=== PATIENT | female | born 1955 | race Caucasian/White ===

== ENCOUNTER 2025-05-05 09:25 | Inpatient (IN) | payer MEDICARE, OTHER ==
[~2025-05-05] VITALS: Ht 177.8 cm; Wt 104.8 kg
--- NOTE | 2025-05-05 09:32 | ED.PDOC ---
HPI Comments This is a 69 year old female BIBA presenting to the ED with chief complaint of generalized weakness. EMS reports that the patient had been noted at home to be hypotensive in the 60s systolically along with experiencing associated generalized weakness and dizziness. EMS relays that the patient was noted to have a higher BP when laying down instead. EMS states patient had recent left knee surgery performed last Sunday in [place]. Patient denies any chest pain, N/V, headache, syncope, or abdominal pain. 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, Medications, Allergies Allergies: Coded Allergies: Amoxicillin (Verified Allergy, Severe, 05/05/25) Clavulanic Acid (Verified Allergy, Severe, 05/05/25) Penicillins (Verified Allergy, Severe, 05/05/25) Codeine (Verified Allergy, Unknown, 05/05/25) Information Source: Patient, Emergency Med Personnel Mode of Arrival: EMS Severity: Moderate Timing: Hours Duration: Since onset Prehospital treatment: 12 Lead EKG, Oxygen Past Medical History PAST MEDICAL HISTORY: High Lipids, HTN, Thyroid Surgical History: Cholecystectomy, Hysterectomy Surgical History (Other): Left knee replacement, Partial thyroidectomy, back surgery Family History Family History: Reviewed,noncontributory to illness Social History Smoker: Non-Smoker Alcohol: Occasionally Drugs: Denies Drug Use Lives In: Home Constitutional: reports: weakness; denies: chills, diaphoresis, fatigue, fever, malaise, sweats, others EENTM: denies: blurred vision, double vision, ear bleeding, ear discharge, ear drainage, ear pain, ear ringing, eye pain, eye redness, hearing loss, mouth pain, mouth swelling, nasal discharge, nose bleeding, nose congestion, nose pain, photophobia, tearing, throat pain, throat swelling, voice changes, others Respiratory: reports: shortness of breath; denies: cough, hemoptysis, orthopnea, SOB at rest, SOB with excertion, stridor, wheezing, others Cardiovascular: denies: chest pain, dizzy spells, diaphoresis, Dyspnea on exertion, edema, irregular heart beat, left arm pain, lightheadedness, palpitations, PND, syncope, others Gastrointestinal: denies: abdomen distended, abdominal pain, blood streaked bowels, constipated, diarrhea, dysphagia, difficulty swallowing, hematemesis, melena, nausea, poor appetite, poor fluid intake, rectal bleeding, rectal pain, vomiting, others Neurological: reports: dizziness; denies: fainting, headache, left sided numbness, left sided weakness, numbness, paresthesia, pre-existing deficit, right sided numbness, right sided weakness, seizure, speech problems, tingling, tremors, weakness, others Musculoskeletal: denies: back pain, gout, joint pain, joint swelling, muscle pain, muscle stiffness, neck pain, others Integumetry: denies: bruises, change in color, change in hair/nails, dryness, laceration, lesions, lumps, rash, wounds, others Allergic/Immunocompromised: denies: Difficulty Healing, Frequent Infections, Hives, Itching, others Hematologic/Lymphatic: denies: anemia, blood clots, easy bleeding, easy bruising, swollen glands, others Endocrine: denies: excessive hunger, excessive sweating, excessive thirst, excessive urination, flushing, intolerance to cold, intolerance to heat, unexplained weight gain, unexplained weight loss, others Psychiatric: denies: anxiety, bipolar disorder, depression, hopeless, panic disorder, schizophrenia, sleepless, suicidal, others All Other Systems: Reviewed and Negative Physical Exam General Appearance: Moderate Distress HEENT: Pale Conjuntivae (L), Pale Conjuntivae (R), Pharynx Normal, TMs Normal Neck: Full Range of Motion, Non-Tender, Normal, Normal Inspection Respiratory: Chest Non-Tender, Lungs Clear, No Accessory Muscle Use, No Respiratory Distress, Normal Breath Sounds Cardiovascular: No Edema, No JVD, No Murmur, No Gallop, Normal Peripheral Pulses, Regular Rate/Rhythm Breast Exam: Deferred Gastrointestinal: No Organomegaly, Non Tender, No Pulsatile Mass, Normal Bowel Sounds, Soft Genitalia: Deferred Pelvic: Deferred Rectal: Deferred Extremities: No calf tenderness, Normal capillary refill, No pedal edema, Swelling (There is mild swelling and decreased range of motion of the left knee secondary to the previous surgery) Musculoskeletal : Apperance: Normal Neurologic: Alert, clinical exercise physiologist II-XII nml as Tested, Motor Weakness, Normal Affect, Normal Mood, No Sensory Deficits Cerebellar Function: Normal Reflexes: Normal Skin: Dry, Pallor, Warm Lymphatic: No Adenopathy EKG EKG : Pulse Rate (adult): 101 [place]: Normal Cardiac Rhythm: ST Block: None Hypertrophy: None ST: Normal Was a procedure done? 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) Indication: Hypotension, Volume resuscitation, Suspected infection Room prepared for procedure: Yes Time Piece Repairer performed hand hygien: Yes Maximal sterile barrier precau: Mask/Eye shield, Sterile gown, Cap, Sterlie gloves, Large sterlie drape Skin Preparation: Chlorhexidine gluconate Skin preparation completely dr: Yes Insertion site: Right, Internal jugular Central line catheter type: [id number] dialysis Number of lumens: 3 Central line exchanged over a: No Antiseptic ointment applied to: Yes Post Assessment: Chest X-Ray Informed consent obtained: Yes Risks/benefits/alt described: Yes CP Differential Dx Differential Diagnosis: Angina, MD, Pulmonary Embolus, Other (Pneumonia) Differential Diagnosis: CHF Differential Diagnosis: Pericarditis X-Ray, Labs, Meds, VS Vital Signs Date Time Temp Pulse Resp B/P (MAP) Pulse Ox O2 Delivery O2 Flow Rate FiO2 05/05/25 12:50 99.3 106 18 102/60 (74) 97 99.3 05/05/25 12:50 106 16 97 Room Air* 0 21 05/05/25 12:20 84/52 05/05/25 12:00 106 05/05/25 11:30 97.8 103 26 96/60 (72) 95 97.8 05/05/25 10:30 Room Air* 0 21 05/05/25 10:30 107 80/49 (59) 97 05/05/25 09:32 101 05/05/25 09:25 101 05/05/25 09:25 98.7 110 16 98/63 95 98.7 Lab Test 05/05/25 13:01 05/05/25 11:25 05/05/25 09:50 Range/Units Lactic Acid Level 2.0 4.0 *H 0.4-2.0 mmol/L Troponin I High Sensitivity 15 19 23 </=34 ng/L White Blood Count 25.8 H 4.4-10.8 10^3/uL Red Blood Count 3.70 L 4.0-5.20 10^6/uL Hemoglobin 10.6 L 12.2-16.2 g/dL Hematocrit 31.6 L 36.0-46.0 % Mean Corpuscular Volume 85.6 80.0-100.0 fL Mean Corpuscular Hemoglobin 28.7 28.0-32.0 pg Mean Corpuscular Hemoglobin Concent 33.5 32.0-36.0 g/dL Red Cell Distribution Width 17.8 H 11.8-14.3 % Platelet Count 528 H 140-450 10^3/uL Mean Platelet Volume 7.1 6.9-10.8 fL Neutrophils (%) (Auto) 37.0-80.0 % Lymphocytes (%) (Auto) 10.0-50.0 % Monocytes (%) (Auto) 0.0-12.0 % Basophils (%) (Auto) 0.0-2.0 % Neutrophils # (Auto) 1.6-8.6 10 ^3/uL Lymphocytes # (Auto) 0.4-5.4 10 ^3/uL Monocytes # (Auto) 0-1.3 10 ^3/uL Differential Total Cells Counted 100.0 100 Neutrophils % (Manual) 84 H 37.0-80.0 Band Neutrophils % (Manual) 0 Lymphocytes % (Manual) 9 L 10.0-50.0 Monocytes % (Manual) 7 0-12 Eosinophils % (Manual) 0 0-7 Basophils % (Manual) 0 0.0-2.0 Metamyelocytes % (manual) 0 Myelocytes % (Manual) 0 Promyelocytes % (Manual) 0 Blast Cells % (Manual) 0 Reactive Lymphocytes 0 Platelet Estimate Increased Sodium Level 128 L 136-145 mmol/L Potassium Level 5.8 *H 3.5-5.1 mmol/L Chloride Level 96 L 98-107 mmol/L Carbon Dioxide Level 18 L 20-31 mmol/L Anion Gap 14 5-15 Blood Urea Nitrogen 33 H 9-23 mg/dL Creatinine 2.50 H 0.550-1.02 mg/dL Glomerular Filtration Rate Calc 20 >90 mL/min BUN/Creatinine Ratio 13.2 10.0-20.0 Serum Glucose 175 H 74-106 mg/dL Calcium Level 10.1 8.7-10.4 mg/dL B-Type Natriuretic Peptide 257.46 0-100 pg/mL Current Medications Medications (Trade) Dose Ordered Sig/David Route Start Time Stop Time Status Last Admin Levofloxacin/ Dextrose 100 ml @ 100 mls/hr Q1H ONCE IV 05/05/25 09:30 05/05/25 10:29 DC 05/05/25 11:18 Sodium Chloride 1,000 ml @ 150 mls/hr Q6H40M ONCE IV 05/05/25 09:30 05/05/25 16:09 05/05/25 10:45 Vancomycin HCl 250 ml @ 250 mls/hr ONCE ONCE IV 05/05/25 09:30 05/05/25 10:29 DC 05/05/25 12:51 Norepinephrine Bitartrate 250 ml @ 3.75 mls/hr Q24H IV 05/05/25 12:00 05/05/25 12:20 The chest x-ray shows: IMPRESSION: 1. Right upper lobe opacity which may reflect atelectasis or pneumonia. IV Hep-Lock was established. We are concerned that this patient may have sepsis so the patient was started on normal saline per sepsis protocol. The patient was also hypotensive so the patient was then started on norepinep hrine after receiving the fluids. The BNP is 257.46 After blood cultures were drawn, the patient had vancomycin IV piggyback as well as Levaquin IV piggyback The chemistry panel shows hyperkalemia at 5.8. The chloride is 96, CO2 of 18 and potassium is elevated at 5.8. The BUN and the creatinine are also elevated. The patient's white blood cell count is 25.8 also consistent with the sepsis and pneumonia The troponin level is negative The 1st lactic acid level came back at 4.0 and the 2nd lactic acid came back at 2.0 The patient is being admitted At this time, the patient will have a central line placed. The patient is being admitted to the ICU Images Reviewed?: Images reviewed and evaluated by me Time of 1ST Reevaluation: 14:24 Reevaluation 1ST: Unchanged Patient Education/Counseling: Diagnosis, Treatment, Prognosis Family Education/Counseling: No Family Present SEPSIS Sepsis Screen Physician Orders Electrocardigram (05/05/25 09:27) Chest Portable (05/05/25 09:30) Heplock Iv (05/05/25 09:30) Pulse Oximetry (05/05/25 09:30) School Superintendent (05/05/25 09:30) Blood Pressure (05/05/25 09:30) Blood Culture (05/05/25 09:30) Sodium Chloride 0.9% (05/05/25 09:30) Norepinephrine 8 Mg/250ml Kit (Levophed) (05/05/25 12:00) Vital Signs Date Time Temp Pulse Resp B/P (MAP) Pulse Ox O2 Delivery O2 Flow Rate FiO2 05/05/25 12:50 99.3 106 18 102/60 (74) 97 99.3 05/05/25 12:50 106 16 97 Room Air* 0 21 05/05/25 12:20 84/52 05/05/25 12:00 106 05/05/25 11:30 97.8 103 26 96/60 (72) 95 97.8 05/05/25 10:30 Room Air* 0 21 05/05/25 10:30 107 80/49 (59) 97 05/05/25 09:32 101 05/05/25 09:25 101 05/05/25 09:25 98.7 110 16 98/63 95 98.7 Laboratory Tests Test 05/05/25 09:50 05/05/25 13:01 Lactic Acid Level 4.0 mmol/L (0.4-2.0) *H 2.0 mmol/L (0.4-2.0) White Blood Count 25.8 10^3/uL (4.4-10.8) H Medications Medications Dose Ordered Sig/David Route Start Time Stop Time Status Last Admin Dose Admin Levofloxacin/ Dextrose 100 ml @ 100 mls/hr Q1H ONCE IV 05/05/25 09:30 05/05/25 10:29 DC 05/05/25 11:18 Norepinephrine Bitartrate 250 ml @ 3.75 mls/hr Q24H IV 05/05/25 12:00 05/05/25 12:20 Sodium Chloride 1,000 ml @ 150 mls/hr Q6H40M ONCE IV 05/05/25 09:30 05/05/25 16:09 05/05/25 10:45 Vancomycin HCl 250 ml @ 250 mls/hr ONCE ONCE IV 05/05/25 09:30 05/05/25 10:29 DC 05/05/25 12:51 Departure 1 Departure Time of Disposition: 14:27 Impression: Primary Impression: Sepsis Qualified Codes: A41.9 - Sepsis, unspecified organism; R65.20 - Severe sepsis without septic shock; N17.9 - Acute kidney failure, unspecified Additional Impressions: Hyperkalemia Hyponatremia Hypochloremia Disposition: ADMITTED INPATIENT Admit to: [facility] Condition: Fair Critical Care Note Critical Care Time?: Yes (55 min-critical care time only) Stability Stability form required: Yes Unstable for transfer: ICU, CCU, PCU, MIKE (Intensive VS monitoring), ED Physician Assesment (Clinical assesment) Heart Score Heart Score: Heart Score Response (Comments) Value History Highly Suspicious 2 EKG Normal 0 Age >65 2 Risk Factors >3 or Hx ASHD 2 Troponin Normal limit 0 Total 6 I personally scribed for FAHEEM MAKI MD ([email or web address]) on 05/05/25 at 09:32. Electronically submitted by Yousuf Bloom ([email or web address]). FAHEEM MAKI MD May 05, 2025 09:32
[2025-05-05 10:19] LABS: Hematocrit 31.6 % (36.0-46.0); Hemoglobin 10.6 g/dL (12.2-16.2); Mean Corpuscular Hemoglobin 28.7 pg (28.0-32.0); Mean Corpuscular Volume 85.6 fL (80.0-100.0)
[2025-05-05 10:28] LABS: Anion Gap 14 (5-15); Calcium 10.1 mg/dL (8.7-10.4)
[2025-05-05 10:33] LABS: BUN/Creatinine Ratio 13.2 (10.0-20.0)
[2025-05-05 10:34] LABS: Sodium 128 mmol/L (136-145)
[2025-05-05 10:35] LABS: Blood Urea Nitrogen 33 mg/dL (9-23); Carbon Dioxide 18 mmol/L (20-31); Chloride 96 mmol/L (98-107); Glucose 175 mg/dL (74-106)
[2025-05-05 10:36] LABS: Potassium 5.8 mmol/L (3.5-5.1)
[2025-05-05 10:38] LABS: Lactic Acid w/Reflex 4.0 mmol/L (0.4-2.0)
[2025-05-05] MEDS: SODIUM CHLORIDE 0.9% 1,000 ML IV ONE ×3 (10:45→16:00)
[2025-05-05 11:24] LABS: Total Cells Counted 100.0 (100)
--- NOTE | 2025-05-05 11:25 | DVH ---
CHEST RADIOGRAPH Indication: sob Technique: Single frontal view of the chest was obtained Comparison: None FINDINGS: Lines and Tubes: None Lungs: Hazy right upper lobe opacity. Lung thrasher otherwise clear. Pleura: No effusion. No pneumothorax. Cardiomediastinal contours: Unremarkable Bones: No acute osseous abnormality. IMPRESSION: 1. Right upper lobe opacity which may reflect atelectasis or pneumonia.
[2025-05-05] MEDS: NOREPINEPHRINE 8 MG/250ML KIT 250 ML IV ONE (12:11)
[2025-05-05] MEDS: NOREPINEPHRINE 8 MG/250ML KIT 250 ML IV SCH (12:20)
[2025-05-05 12:50] VITALS: PULSE 106; RESP 16; O2SAT 97
[2025-05-05] MEDS: VANCOMYCIN 1GM/250ML KIT 250 ML IV ONE (12:51)
[2025-05-05] MEDS ORDERED: MET50T PO (15:32)
[2025-05-05] MEDS ORDERED: ROPI3TAB16 PO (15:32)
[2025-05-05] MEDS ORDERED: LEVO75TA6 PO (15:32)
[2025-05-05] MEDS ORDERED: FLUO60TA PO (15:32)
[2025-05-05] MEDS ORDERED: LISI20TA56 PO (15:32)
[2025-05-05] MEDS ORDERED: BUPR-581 PO (15:32)
--- NOTE | 2025-05-05 15:38 | DVH ---
CHEST RADIOGRAPH Indication: CENTRAL LINE PLACEMENT Technique: Single frontal view of the chest was obtained Comparison: XY CHEST PORTABLE on DOS: 05/05/25 FINDINGS: Lines and Tubes: Right IJ approach central venous catheter terminating over the superior cavoatrial j unction/ proximal right atrium. Lungs: No focal consolidation. Bronchovascular crowding due to low lung volumes. Mild interstitial p rominence. Pleura: No effusion. No pneumothorax. Cardiomediastinal contours: Unremarkable Bones: No acute osseous abnormality. IMPRESSION: Right IJ approach central venous catheter terminating over the superior cavoatrial junction/ proximal right atrium. Bronchovascular crowding due to low lung volumes with possible mild pulmonary vascular congestion.
[2025-05-05] MEDS ORDERED: VANCOMYCIN PER PHARMACY 0 MG IV SCH (15:45)
--- NOTE | 2025-05-05 16:00 | DVHHP2 ---
History of Present Illness Reason for Visit: Generalized weakness History of Present Illness Kaur Jones is a 69-year-old female with past medical history of hypertension, hyperlipidemia, and hypothyroidism, who came to the hospital for generalized weakness. Patient had her left knee replaced on 04/27/2025, she was in the hospital for a few days and then sent home. She states she was doing well at home at first, but then started to become weaker, having difficulties performing her daily ADLs, and spouse states she began hallucinating. Patient states she had had a similar event with a prior infection, so her called EMS to have her evaluated. Cardiovascular: HTN, hyperipidemia Endocrine: Hypothyroidism Past Surgical History: Cholecystectomy, Hysterectomy, Other (back surgery, thyroidectomy) Smoke: No ALCOHOL: rare Drugs: None Lives: with Family Domestic Violence: Neg Review of Systems Constitutional: Yes: Fever, Chills, Weakness, Malaise; No: Sweats, Other Eyes: No: Pain, Vision change, Conjunctivae inflammation, Eyelid inflammation, Other, Redness ENT: No: Ear pain, Ear discharge, Nose pain, Nose discharge, Nose congestion, Mouth pain, Mouth swelling, Throat pain, Throat swelling, Other Respiratory: No: Cough, Dry, Shortness of breath, SOB with excertion, Wheezing, Hemoptysis, Pleuritic Pain, Sputum, Wheezing, Other Cardiovascular: No: Chest Pain, Palpitations, Orthopnea, Paroxysmal Noc. Dyspnea, Edema, Lt Headedness, Other Gastrointestinal: No: Nausea, Vomiting, Abdominal Pain, Diarrhea, Constipation, Melena, Hematochezia, Other Genitourinary: No Dysuria, No Frequency, No Incontinence, No Hematuria, No Retention, No Other Musculoskeletal: No: other, neck pain, shoulder pain, arm pain, back pain, hand pain, leg pain, foot pain Skin: No: Rash, Lesions, Jaundice, Bruising, Other Neurological: Weakness, Incoordination, Change in speech, Confusion; No: Numbness, Seizures, Other Allergies: Coded Allergies: Amoxicillin (Verified Allergy, Severe, 05/05/25) Clavulanic Acid (Verified Allergy, Severe, 05/05/25) Penicillins (Verified Allergy, Severe, 05/05/25) Codeine (Verified Allergy, Unknown, 05/05/25) Medications Current Medications Medications Dose Ordered Sig/David Route Start Time Stop Time Status Last Admin Dose Admin Norepinephrine Bitartrate 250 ml @ 3.75 mls/hr Q24H IV 05/05/25 12:00 05/05/25 12:20 3.75 MLS/HR Exam Vital Signs Vital Signs Date Time Temp Pulse Resp B/P (MAP) Pulse Ox O2 Delivery O2 Flow Rate FiO2 05/05/25 15:15 109 32 87/47 (60) 94 05/05/25 12:50 99.3 99.3 05/05/25 12:50 Room Air* 0 21 General Appearance: Alert, Oriented X3, Cooperative, moderate distress HEENT: Atraumatic, PERRLA Respiratory: Clear to auscultation, Normal air movement Cardiovascular: Regular rate, Normal S1, Normal S2, No murmurs Abdominal: Normal bowel sounds, Soft, No tenderness, No hepatospenomegaly Extremities: No clubbing, No cyanosis, No edema, Normal pulses, No tenderness/swelling Skin: No rashes, No breakdown, No significant lesion Neuro: Normal gait, Normal speech, Strength at 5/5 X4 ext, Normal tone Psych/Mental Status: Mental status NL, Mood NL Labs/Xrays Labs Test 05/05/25 13:01 05/05/25 09:50 Range/Units Lactic Acid Level 2.0 0.4-2.0 mmol/L Troponin I High Sensitivity 15 </=34 ng/L White Blood Count 25.8 H 4.4-10.8 10^3/uL Red Blood Count 3.70 L 4.0-5.20 10^6/uL Hemoglobin 10.6 L 12.2-16.2 g/dL Hematocrit 31.6 L 36.0-46.0 % Mean Corpuscular Volume 85.6 80.0-100.0 fL Mean Corpuscular Hemoglobin 28.7 28.0-32.0 pg Mean Corpuscular Hemoglobin Concent 33.5 32.0-36.0 g/dL Red Cell Distribution Width 17.8 H 11.8-14.3 % Platelet Count 528 H 140-450 10^3/uL Mean Platelet Volume 7.1 6.9-10.8 fL Neutrophils (%) (Auto) 37.0-80.0 % Lymphocytes (%) (Auto) 10.0-50.0 % Monocytes (%) (Auto) 0.0-12.0 % Basophils (%) (Auto) 0.0-2.0 % Neutrophils # (Auto) 1.6-8.6 10 ^3/uL Lymphocytes # (Auto) 0.4-5.4 10 ^3/uL Monocytes # (Auto) 0-1.3 10 ^3/uL Differential Total Cells Counted 100.0 100 Neutrophils % (Manual) 84 H 37.0-80.0 Band Neutrophils % (Manual) 0 Lymphocytes % (Manual) 9 L 10.0-50.0 Monocytes % (Manual) 7 0-12 Eosinophils % (Manual) 0 0-7 Basophils % (Manual) 0 0.0-2.0 Metamyelocytes % (manual) 0 Myelocytes % (Manual) 0 Promyelocytes % (Manual) 0 Blast Cells % (Manual) 0 Reactive Lymphocytes 0 Platelet Estimate Increased Sodium Level 128 L 136-145 mmol/L Potassium Level 5.8 *H 3.5-5.1 mmol/L Chloride Level 96 L 98-107 mmol/L Carbon Dioxide Level 18 L 20-31 mmol/L Anion Gap 14 5-15 Blood Urea Nitrogen 33 H 9-23 mg/dL Creatinine 2.50 H 0.550-1.02 mg/dL Glomerular Filtration Rate Calc 20 >90 mL/min BUN/Creatinine Ratio 13.2 10.0-20.0 Serum Glucose 175 H 74-106 mg/dL Calcium Level 10.1 8.7-10.4 mg/dL B-Type Natriuretic Peptide 257.46 0-100 pg/mL CHEST RADIOGRAPH FINDINGS: Lines and Tubes: None Lungs: Hazy right upper lobe opacity. Lung thrasher otherwise clear. Pleura: No effusion. No pneumothorax. Cardiomediastinal contours: Unremarkable Bones: No acute osseous abnormality. IMPRESSION: 1. Right upper lobe opacity which may reflect atelectasis or pneumonia. SEPSIS Sepsis Screen Date sepsis recognized/suspect: May 05, 2025 Time Sepsis recognized/suspect: 1250 Recent Procedure: Yes On Antibiotic Therapy: Yes Respiratory Rate >20: No Heart Rate >90: Yes Temp<36 C (96.8 F) or >38.3 C: No SBP <90 or MAP <65 mmHG: Yes New Acute Mental Status Change: No Is the patient on CPAP, BIPAP,: No Physician Orders Electrocardigram (05/05/25 09:27) Chest Portable (05/05/25 09:30) Heplock Iv (05/05/25 09:30) Pulse Oximetry (05/05/25 09:30) Teacher Music (05/05/25 09:30) Blood Pressure (05/05/25 09:30) Blood Culture (05/05/25 09:30) Sodium Chloride 0.9% (05/05/25 09:30) Norepinephrine 8 Mg/250ml Kit (Levophed) (05/05/25 12:00) Chest Xray 1 View (05/05/25 15:02) Admit (05/05/25 15:22) Code Status (05/05/25 15:22) Hydrocodone-Acet 5/325mg Tab ([place] /32 (05/05/25 15:30) Ondansetron Hcl (Zofran) (05/05/25 15:30) Docusate Sodium Capsule (Colace Capsule) (05/05/25 15:30) Complete Blood Count (05/06/25 04:00) Comprehensive Metabolic Panel (05/06/25 04:00) Cardiac Diet-2gna,Lofat,Lochol (05/05/25 Dinner) Condition: Critical (05/05/25 15:22) Acetaminophen Tablet (Tylenol Tablet) (05/05/25 15:30) Pt Request For Service (05/05/25 15:22) Vital Signs Date Time Temp Pulse Resp B/P (MAP) Pulse Ox O2 Delivery O2 Flow Rate FiO2 05/05/25 15:15 109 32 87/47 (60) 94 05/05/25 15:00 109 34 99/57 (71) 95 05/05/25 14:45 108 32 117/60 (79) 96 05/05/25 14:30 106 38 107/61 (76) 96 05/05/25 14:15 106 38 110/59 (76) 94 05/05/25 14:00 110/59 05/05/25 14:00 106 34 129/58 (81) 95 05/05/25 13:45 105 32 116/67 (83) 95 05/05/25 13:30 105 33 99/61 (74) 96 05/05/25 13:15 105 36 102/55 (71) 94 05/05/25 13:00 84/46 05/05/25 13:00 107 36 84/46 (59) 97 05/05/25 12:50 99.3 106 18 102/60 (74) 97 99.3 05/05/25 12:50 106 16 97 Room Air* 0 21 05/05/25 12:20 84/52 05/05/25 12:00 106 05/05/25 11:30 97.8 103 26 96/60 (72) 95 97.8 05/05/25 10:30 Room Air* 0 21 05/05/25 10:30 107 80/49 (59) 97 05/05/25 09:32 101 05/05/25 09:25 101 05/05/25 09:25 98.7 110 16 98/63 95 98.7 Laboratory Tests Test 05/05/25 09:50 05/05/25 13:01 Lactic Acid Level 4.0 mmol/L (0.4-2.0) *H 2.0 mmol/L (0.4-2.0) White Blood Count 25.8 10^3/uL (4.4-10.8) H Medications Medications Dose Ordered Sig/David Route Start Time Stop Time Status Last Admin Dose Admin Levofloxacin/ Dextrose 100 ml @ 100 mls/hr Q1H ONCE IV 05/05/25 09:30 05/05/25 10:29 DC 05/05/25 11:18 100 MLS/HR Norepinephrine Bitartrate 250 ml @ 3.75 mls/hr Q24H IV 05/05/25 12:00 05/05/25 12:20 3.75 MLS/HR Sodium Chloride 1,000 ml @ 150 mls/hr Q6H40M ONCE IV 05/05/25 09:30 05/05/25 16:09 05/05/25 10:45 150 MLS/HR Vancomycin HCl 250 ml @ 250 mls/hr ONCE ONCE IV 05/05/25 09:30 05/05/25 10:29 DC 05/05/25 12:51 250 MLS/HR Assessment/Plan Assessment/Plan Assessment: Hyperkalemia, Sepsis, Acute kidney injury, Hyponatremia, Leukocytosis, Dehydration, Plan: Admit to ICU, Vasopressors as needed, IV antibiotics, IV hydration, Blood cultures, Urine culture, Urine analysis, Home medications reconciled, Plan discussed with: Patient My Orders Orders - MORAIMA CORRALES Procedure Category Date Status Time Admit ADMIT 05/05/25 Transmitted 15:22 Code Status CODE 05/05/25 Transmitted 15:22 Hydrocodone-Acet PHA 05/05/25 Transmitted 5/325mg Tab ([place] 15:30 Ondansetron Hcl PHA 05/05/25 Transmitted (Zofran) 15:30 Docusate Sodium PHA 05/05/25 Transmitted Capsule (Colace 15:30 Complete Blood Count LAB 05/06/25 Verified 04:00 Comprehensive LAB 05/06/25 Verified Metabolic Panel 04:00 Cardiac DIET 05/05/25 Transmitted Diet-2gna,Lofat,Lochol Dinner Condition: Critical MANJIT 05/05/25 In Process 15:22 Acetaminophen Tablet PHA 05/05/25 Transmitted (Tylenol Tablet) 15:30 Pt Request For Service PT 05/05/25 Logged 15:22 Date of Service: May 05, 2025 Billing Provider: MORAIMA CORRALES Common Visit Codes: [id number] INP/OBS CARE (MOD) MORAIMA CORRALES May 05, 2025 16:00
[2025-05-05] MEDS: HYDROcodone-ACET 5/325MG TAB PO PRN (16:15)
--- NOTE | 2025-05-05 19:04 | DVHNC2 ---
Procedure - Central Line Procedure Note Date and time: 05/05/25 Indication: Vascular Access Central Line Location: Right Internal Jugular Vein Procedure Software Publisher: Penelope Oneal, Resident Attending Physician: Dr. Valentine Consent: Consent was obtained from patient prior to the procedure. Indications, risks and benefits were discussed prior to the procedure. Procedure Summary: A time out was performed. My hands were washed immediately prior to the procedure. I wore a surgical cap, mask with protective eyewear, full gown and sterile gloves throughout the procedure. The patient was placed in Trendelenburg position, with head turned 30 degrees away from the insertion site. The Right neck prepped using chlorhexidine scrub and draped in sterile fashion using a three quarter sheet drape and sterile towels. Skin preparation was allowed to dry prior to skin puncture. Anatomic landmarks were identified. Anesthesia was achieved over the vein using 5 ml of 1% lidocaine. Using real-time ultrasound, with sterile probe cover and sterile gel, the Right Internal Jugular Vein was identified on ultrasound using the linear ultrasound probe in the transverse orientation. The carotid artery was identified and avoided utilizing color-flow. The Internal Jugular Vein was then placed in the center of the ultrasound field and compressed for patency. The introducer needle was inserted into the vein under direct ultrasound visualization, and a movement artifact was identified as the needle was advanced through the skin toward the vessel. A real-time hyperechoic signal revealed visualization of vascular needle entry into the lumen as blood was noted to flashback in the syringe. The needle was then held in place, the syringe was removed, and the guide wire was advanced through the needle. Direct visualization of the guide wire location within the vein was noted on ultrasound, indicating proper placement. The needle was then removed. A small incision was made at the skin surface with a scalpel, and a skin dilator was advanced over the guide wire. After appropriate dilation was obtained, the dilator was removed, and a triple-lumen catheter was then advanced over the guide wire into proper position. The guide wire was removed and discarded. The ports were aspirated, which showed good blood return, and then carefully flushed with normal saline. The catheter was stabilized and sutured to the skin with 2-0 silk at two anchor points. A sterile op-site was placed over the catheter and biopatch. The patient tolerated the procedure without any hemodynamic compromise. Estimated blood loss: 5 ml Post-procedure chest x-ray: Shows proper positioning of the catheter for use. PENELOPE ONEAL [facility] 2, 2025 19:04
[2025-05-05 19:45] VITALS: RESP 19; O2SAT 98
[2025-05-05] MEDS: VANCOMYCIN 500mg/100mL 100 ML IV ONE (21:17)
[2025-05-05] MEDS ORDERED: METOPROLOL TARTRATE 50 MG TAB PO SCH (22:00)
[2025-05-05] MEDS: MELATONIN 5 MG TAB PO ONE (22:00)
[2025-05-05] MEDS: ROPINIROLE HCL 3 MG PO SCH (22:00)
[2025-05-05] MEDS: ALBUMIN 5% 250 ML IV ONE (23:30)
[2025-05-06 06:02] LABS: Hematocrit 27.2 % (36.0-46.0); Hemoglobin 9.2 g/dL (12.2-16.2); Mean Corpuscular Hemoglobin 28.2 pg (28.0-32.0); Mean Corpuscular Volume 83.8 fL (80.0-100.0); Nucleated Red Blood Cells % 0.0 %
[2025-05-06] MEDS: LEVOTHYROXINE SODIUM 25 MCG TAB PO SCH (06:16)
[2025-05-06 06:21] LABS: Albumin 3.3 g/dL (3.2-4.8); Alkaline Phosphatase 102 U/L (46-116); Anion Gap 12 (5-15); BUN/Creatinine Ratio 27.1 (10.0-20.0); Calcium 8.8 mg/dL (8.7-10.4); Chloride 100 mmol/L (98-107); Magnesium 2.1 mg/dL (1.6-2.6); Potassium 4.4 mmol/L (3.5-5.1); Total Protein 6.0 g/dL (5.7-8.2)
[2025-05-06 06:22] LABS: Bilirubin, Total 0.6 mg/dL (0.2-1.0)
[2025-05-06 06:35] LABS: Alanine Aminotransferase < 9 U/L (7-40); Blood Urea Nitrogen 42 mg/dL (9-23); Carbon Dioxide 17 mmol/L (20-31); Glucose 136 mg/dL (74-106); Sodium 129 mmol/L (136-145)
[2025-05-06 08:00] VITALS: PULSE 137; RESP 33; O2SAT 95
[2025-05-06] MEDS: dilTIAZem 25 MG/5 ML VIAL IV ONE ×3 (09:58→21:46)
[2025-05-06] MEDS ORDERED: LISINOPRIL 20 MG TAB PO SCH (10:00)
[2025-05-06] MEDS ORDERED: PATIENTS OWN MEDICATION (Levothyroxine Sodium 1 TAB) PO SCH (10:00)
[2025-05-06] MEDS ORDERED: PATIENTS OWN MEDICATION (Fluoxetine Hcl 1 TAB) PO SCH (10:00)
[2025-05-06] MEDS: METOPROLOL TARTRATE 50 MG TAB PO SCH (10:46)
[2025-05-06 11:30] LABS: Urine Amorphous Crystal MOD /hpf (None Seen); Urine Protein, UAD 1+ (Negative)
[2025-05-06] MEDS: ADENOSINE 6 MG/2 ML INJ IV ONE ×2 (11:30→11:38)
[2025-05-06] MEDS: AMIODARONE BOLUS KIT 100 ML IV ONE ×2 (11:30→11:44)
[2025-05-06] MEDS: AMIODARONE 360mg/200mL PREMIX 200 ML IV ONE ×2 (11:38→12:00)
[2025-05-06] MEDS: MAGNESIUM SULFATE 1GM/100ML 100 ML IV ONE ×2 (11:45→11:47)
[2025-05-06] MEDS: fentaNYL CITRATE 100 MCG/2 ML VL ONE (11:56)
[2025-05-06] MEDS: fentaNYL CITRATE 100 MCG/2 ML VL IV ONE (12:00)
[2025-05-06] MEDS: HEPARIN SODIUM (PORCINE) 5000 UNITS/ML 1ML VIAL IV ONE (12:14)
[2025-05-06] MEDS: MIDAZOLAM HCL 2MG/2ML 2ml VIAL (1mg/ml) IV ONE (12:18)
--- NOTE | 2025-05-06 12:22 | DVHNC2 ---
Cardioversion Attempts: x1 Resulted Rhythm: Other (Paroxysmal atrial fibrillation) Direct Supervision: Yes Informed consent obtained: Yes Risks/benefits/alt described: Yes Notes The procedure performed was a direct current cardioversion. Indication is atrial fibrillation with rapid ventricular response and hypotension. Prior to procedure, a full informed consent was obtained and the patient was prepped in usual fashion and placed in the supine position. Versed 2 mg IV push were given for conscious sedation. External direct current cardioversion pads were placed on the patient's chest and the patient was connected to Zoll monitor. Patient was placed on 2 L nasal cannula with RT team at bedside. Heparin 4000 units intravenous push was given prior to procedure. A twelve lead electrocardiogram was obtained prior to procedure and revealed atrial fibrillation with a rapid ventricular response. Synchronous cardioversion with 120J converted the patient from atrial fibrillation with rapid ventricular response to paroxysmal atrial fibrillation. Patient was easily arousable and no neurological deficits noted. We will continue with the IV amiodarone per protocol. Date of Service: May 06, 2025 Billing Provider: MORALES KAY Common Visit Codes: PROCEDURE ONLY Date of Service: May 06, 2025 Billing Provider: MORALES KAY Cardiology Common Codes: PROCEDURE ONLY Cardiology Procedure Codes: 14143-TO CARDIOVERSION MORALES KAY May 06, 2025 12:22
[2025-05-06] MEDS: MIDAZOLAM HCL 2MG/2ML 2ml VIAL (1mg/ml) ONE (12:37)
--- NOTE | 2025-05-06 12:42 | DVHINCON2 ---
Date Seen: May 06, 2025 Referring Physician ARANZA Apple Reason for Consultation SVT History of Present Illness This is a 69-year-old female patient who presents to the emergency room with chief complaint of generalized weakness, shortness of breath, and dizziness for one day prior to emergency room arrival. Cardiology has been consulted at this time for SVT. Initial twelve lead electrocardiogram reveals sinus tachycardia. At the time of assessment, the patient's heart rate is fluctuating between 170- 200's. A twelve lead electrocardiogram was ordered and obtained at that time and reveals atrial fibrillation with rapid ventricular response (EKG machine reading SVT). Hospitalist in the emergency room ordered Cardizem 25 mg IV x1, without improvement in heart rate. The patient denies any chest pain, or palpitations at time of assessment. Initial troponin level of 23ng/L with flat trend thereafter. Significant past medical history includes atrial fibrillation status post cardiac ablation (on Eliquis), hypertension, thyroid disease s/p partial thyroidectomy, anemia, and left knee replacement on April 27, 2025. 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 Past Medical History Past medical history reviewed. No other significant than mentioned above. Past Surgical History Left knee replacement on April 27, 2025 Cholecystectomy Hysterectomy Back surgery to L4 and L5 Partial thyroidectomy Family History Family history reviewed. Social History Denies the use of tobacco, alcohol or illicit drugs. Allergies: Coded Allergies: Amoxicillin (Verified Allergy, Severe, 05/05/25) Clavulanic Acid (Verified Allergy, Severe, 05/05/25) Penicillins (Verified Allergy, Severe, 05/05/25) Codeine (Verified Allergy, Unknown, 05/05/25) Home Meds Reported Medications Metoprolol Tartrate (LOPRESSOR TABLET) 50 Mg Tb, 1 TAB PO BID 05/05/25 Bupropion Hcl (Bupropion Hcl Xl) 300 Mg Tab, 1 TAB PO DAILY 05/05/25 Lisinopril (Lisinopril) 20 Mg Tab, 1 TAB PO DAILY 05/05/25 Levothyroxine Sodium (Levothyroxine Sodium) 75 Mcg Tab, 1 TAB PO DAILY 05/05/25 Fluoxetine Hcl (FLUOXETINE HCL) 60 Mg Tab, 1 TAB PO DAILY 05/05/25 Ropinirole Hydrochloride (Ropinirole Hcl) 3 Mg Tab, 1 TAB PO HS 05/05/25 Home Meds Home medications reviewed. Current Medications Current Medications Medications (Trade) Dose Ordered Sig/David Route PRN Reason Start Time Stop Time Status Last Admin Acetaminophen/ Hydrocodone Bitart (Viper 5/325MG Tab) 1 tab Q4HP PRN PO MODERATE PAIN (4-6 PAIN SCALE) 05/05/25 15:30 Ondansetron HCl (Zofran) 4 mg Q4HP PRN IV NAUSEA / VOMITING 05/05/25 15:30 Docusate Sodium (Colace Capsule) 100 mg BIDPRN PRN PO FOR CONSTIPATION 05/05/25 15:30 Acetaminophen (Tylenol Tablet) 650 mg Q6HP PRN PO PAIN SCALE 1-3 OR TEMP>100.4 05/05/25 15:30 Vancomycin HCl 0 ml @ 0 mls/hr UD IV 05/05/25 15:45 Lisinopril (Zestril Tablet) 20 mg DAILY PO 05/06/25 10:00 05/05/25 17:59 DC Metoprolol Tartrate (Lopressor Tablet) 50 mg BID PO 05/05/25 22:00 05/05/25 15:56 DC Patient Own Medication 1 tab DAILY PO 05/06/25 10:00 Patient Own Medication 1 tab DAILY PO 05/06/25 10:00 UNV Patient Own Medication 1 tab DAILY PO 05/06/25 10:00 UNV Patient Own Medication 1 tab HS PO 05/05/25 22:00 Fluoxetine HCl (PROzac CAPSULE) 60 mg DAILY PO 05/06/25 10:00 05/06/25 10:29 Levothyroxine Sodium (Synthroid Tablet) 75 mcg QAM@0600 PO 05/06/25 06:00 05/06/25 06:16 Levofloxacin 50 ml @ 50 mls/hr DAILY IV 05/06/25 10:00 05/06/25 10:29 Metoprolol Tartrate (Lopressor Tablet) 50 mg BID PO 05/06/25 10:00 05/06/25 10:46 Amiodarone HCL/ Dextrose 200 ml @ 16.66 mls/ hr Q12H IV 05/06/25 17:45 Review of Systems Constitutional: Generalized weakness Ears, Nose, & Throat: No symptom reported Eyes: No symptom reported Neurological: Dizziness Pulmonary/Respiratory: Shortness of breath Cardiovascular: No symptom reported Gastrointestinal: No symptom reported Genitourinary: No symptom reported Musculoskeletal: No symptom reported Skin: No symptom reported Psychiatric: No symptom reported Endocrine: No symptom reported Hematologic/Lymphatic: No symptom reported Vital Signs Vital Signs Date Time Temp Pulse Resp B/P (MAP) Pulse Ox O2 Delivery O2 Flow Rate FiO2 05/06/25 12:06 126 05/06/25 10:46 83/62 05/06/25 08:00 98.4 33 95 98.4 05/06/25 08:00 Room Air* 0 21 Physical Exam General Appearance: Cooperative. Well-developed. Well-nourished. No acute distress. Pulmonary/Respiratory: Diminished bilateral lower lobes Cardiovascular/Chest: Irregularly irregular rate and rhythm. Peripheral Pulses: 2+ Radial (R). 2+ Radial (L). 2+ Pedal (R). 2+ Pedal (L) Abdominal Exam: Normal bowel sounds. Ankle Exam: Negative ankle edema Lower extremities: Negative lower extremity edema Neuro/Mental Status: A/OX4, coherent. Thoughts/Psych: Normal thought pattern. Appropriate mood and affect. Good judgment and insight. Appearance: No acute distress. Skin Exam: Normal inspection. Normal color. Warm and dry. Left knee brace in place Labs/Diagnostic Data Labs Test 05/06/25 09:30 05/06/25 05:21 05/05/25 17:54 05/05/25 13:01 Range/Units Urine Color Light-orange Yellow Urine Clarity Ex.turbid Clear Urine pH 5.0 5.0-9.0 Urine Specific [place] 1.021 1.001-1.035 Urine Protein 1+ H Negative Urine Ketones Negative Negative Urine Blood 1+ H Negative /uL Urine Nitrite Negative Negative Urine Bilirubin Negative Negative Urine Urobilinogen 2 H Negative mg/dL Urine Leukocyte Esterase Negative Negative /uL Urine RBC 7 0 - 4 /hpf Urine Microscopic WBC 7 H 0-5 /HPF Urine Squamous Epithelial Cells Few <5 /hpf Urine Amorphous Crystals Mod None Seen /hpf Urine Bacteria None seen None Seen /hpf Urine Hyaline Casts Mod 0 - 2 /lpf Urine Mucus Few None Seen Urine Glucose Trace Normal mg/dL White Blood Count 23.1 H 4.4-10.8 10^3/uL Red Blood Count 3.25 L 4.0-5.20 10^6/uL Hemoglobin 9.2 L 12.2-16.2 g/dL Hematocrit 27.2 #L 36.0-46.0 % Mean Corpuscular Volume 83.8 80.0-100.0 fL Mean Corpuscular Hemoglobin 28.2 28.0-32.0 pg Mean Corpuscular Hemoglobin Concent 33.7 32.0-36.0 g/dL Red Cell Distribution Width 18.2 H 11.8-14.3 % Platelet Count 449 140-450 10^3/uL Mean Platelet Volume 7.1 6.9-10.8 fL Neutrophils (%) (Auto) 92.0 H 37.0-80.0 % Lymphocytes (%) (Auto) 2.2 L 10.0-50.0 % Monocytes (%) (Auto) 5.8 0.0-12.0 % Eosinophils (%) (Auto) 0.0 0.0-7.0 % Basophils (%) (Auto) 0.0 0.0-2.0 % Neutrophils # (Auto) 21.3 H 1.6-8.6 10 ^3/uL Lymphocytes # (Auto) 0.5 0.4-5.4 10 ^3/uL Monocytes # (Auto) 1.3 0-1.3 10 ^3/uL Eosinophils # (Auto) 0 0-0.8 10 ^3/uL Basophils # (Auto) 0 0-0.2 10 ^3/uL Nucleated Red Blood Cells 0.0 % Sodium Level 129 L 136-145 mmol/L Potassium Level 4.4 3.5-5.1 mmol/L Chloride Level 100 98-107 mmol/L Carbon Dioxide Level 17 L 20-31 mmol/L Anion Gap 12 5-15 Blood Urea Nitrogen 42 H 9-23 mg/dL Creatinine 1.55 #H 0.550-1.02 mg/dL Glomerular Filtration Rate Calc 36 >90 mL/min BUN/Creatinine Ratio 27.1 H 10.0-20.0 Serum Glucose 136 H 74-106 mg/dL Calcium Level 8.8 8.7-10.4 mg/dL Magnesium Level 2.1 1.6-2.6 mg/dL Total Bilirubin 0.6 0.2-1.0 mg/dL Aspartate Amino Transferase (AST) 23 13-40 U/L Alanine Aminotransferase (ALT) < 9 7-40 U/L Alkaline Phosphatase 102 46-116 U/L Total Protein 6.0 5.7-8.2 g/dL Albumin 3.3 3.2-4.8 g/dL Random Vancomycin Level 10.4 H 5-10 ug/mL POC Glucose 131 H 70-106 mg/dl Lactic Acid Level 2.0 0.4-2.0 mmol/L Troponin I High Sensitivity 15 </=34 ng/L Test 05/05/25 09:50 Range/Units Differential Total Cells Counted 100.0 100 Neutrophils % (Manual) 84 H 37.0-80.0 Band Neutrophils % (Manual) 0 Lymphocytes % (Manual) 9 L 10.0-50.0 Monocytes % (Manual) 7 0-12 Eosinophils % (Manual) 0 0-7 Basophils % (Manual) 0 0.0-2.0 Metamyelocytes % (manual) 0 Myelocytes % (Manual) 0 Promyelocytes % (Manual) 0 Blast Cells % (Manual) 0 Reactive Lymphocytes 0 Platelet Estimate Increased B-Type Natriuretic Peptide 257.46 0-100 pg/mL Microbiology Date/Time Source Procedure Growth Status 05/05/25 11:20 Voided Urine Urine Culture - Preliminary Resulted 05/05/25 10:05 Blood Blood Culture - Preliminary NO GROWTH AFTER 24 HOURS OF INCUBATION. Resulted Assessment Atrial fibrillation with rapid ventricular response status post direct current cardioversion History of atrial fibrillation status post ablation (on Eliquis) Rule out structural heart disease Sepsis Pneumonia History of hypertension Acute kidney injury Hyperkalemia, resolved Acute on chronic anemia Thyroid disease status post partial thyroidectomy Plan/Recommendation We will continue with the following plan/recommendations (Dr. Estrada): We will proceed with obtaining a transthoracic echocardiogram to evaluate cardiac function. While in the emergency room, the patient was in atrial f ibrillation with rapid ventricular response with heart rate reaching as high as 200s. Initially, the patient was given adenosine 6 mg IV push one time which revealed underlying atrial fibrillation and nonsustained V-tach. The patient was immediately given an amiodarone bolus per protocol and initiated on 1 g magnesium IV once. Post amiodarone bolus, the patient became hypotensive with heart rate sustaining greater than 170s. The patient was offered a direct current cardioversion given hemodynamic instability. Prior to procedure, a full informed consent was obtained and the patient was prepped in usual fashion and placed in the supine position. Versed 2 mg IV push were given for conscious sedation. External direct current cardioversion pads were placed on the patient's chest and the patient was connected to Zoll monitor. Patient was placed on 2 L nasal cannula with RT team at bedside. Heparin 4000 units intravenous push was given prior to procedure. A twelve lead electrocardiogram was obtained prior to procedure and revealed atrial fibrillation with a rapid ventricular response. Synchronous cardioversion with 120J converted the patient from atrial fibrillation with rapid ventricular response to paroxysmal atrial fibrillation. Patient was easily arousable and no neurological deficits noted postprocedure. [id number] VASc score: 3 points. HAS-BLED score: 2 points. We will continue with the IV amiodarone per protocol. Beta-dejah for rate control as tolerated by blood pressure. Therapeutic Lovenox while inpatient, transition back to low-dose DOAC prior to discharge. Administer 1 L fluid bolus. Continue with antibiotics per primary care team. Continue with close cardiac surveillance. Thank you for allowing us to care for this patient. Please call with any questions or concerns. Critical care time spent: 44 minutes This medical document was created using an electronic medical record system with voice recognition software and computerized dictation system. Although this document has been carefully reviewed, there might still be some phonetic and typographical errors. Occasional wrong-word or ``sound-alike substitutions may have occurred due to the inherent limitations of voice recognition software. These areas are purely typographical due to imperfections of the software programs and do not reflect any compromise in the patient's medical care. Please read the chart carefully and recognize, using context, where these substitutions have occurred. Plan discussed with: Patient NYHA Physical activity limitations: NA Date of Service: May 06, 2025 Billing Provider: MORALES KAY Cardiology Common Codes: [id number] INP/OBS CARE (High) Cardiology Consultation Codes: [id number] CONSULT <45MIN MORALES KAY May 06, 2025 12:42
[2025-05-06] MEDS: SODIUM CHLORIDE 0.9% 1,000 ML IV ONE (12:45)
[2025-05-06] MEDS: NOREPINEPHRINE 8 MG/250ML KIT 250 ML IV SCH (12:45)
[2025-05-06 13:10] LABS: Cholesterol 97 mg/dL (< 200)
[2025-05-06 13:12] LABS: HDL Cholesterol 11 mg/dL (40-59); Triglycerides 135 mg/dL (< 150)
[2025-05-06] MEDS: VANCOMYCIN 1GM/250ML KIT 250 ML IV ONE (16:39)
--- NOTE | 2025-05-06 17:00 | DVHPN2 ---
Subjective I am assuming the care of the patient from today onwards. Patient is status post SVT status post adenosine then went into AFib with RVR with a hemodynamically instability including hypotension and heart rate into 170 status post cardioversion. Currently in paroxysmal AFib with a rate controlled on IV amiodarone drip as well as Levophed drip. Changes from previous H/P or p: No Changes Eyes: No Pain, No Vision change, No Conjunctivae inflammation, No Eyelid inflammation, No Other, No Redness ENT: No Ear pain, No Ear discharge, No Nose pain, No Nose discharge, No Nose congestion, No Mouth pain, No Mouth swelling, No Throat pain, No Throat swelling, No Other Cardiovascular: No Chest Pain, No Palpitations, No Orthopnea, No Paroxysmal Noc. Dyspnea, No Edema, No Lt Headedness, No Other Respiratory: No Cough, No Dry, No Shortness of breath, No SOB with excertion, No Wheezing, No Hemoptysis, No Pleuritic Pain, No Sputum, No Other Gastrointestinal: No Nausea, No Vomiting, No Abdominal Pain, No Diarrhea, No Constipation, No Melena, No Hematochezia, No Other Genitourinary: No Dysuria, No Frequency, No Incontinence, No Hematuria, No Retention, No Other Musculoskeletal: No other, No neck pain, No shoulder pain, No arm pain, No back pain, No hand pain, No leg pain, No foot pain Skin: No Rash, No Lesions, No Jaundice, No Bruising, No Other Objective Vitals Vital Signs Date Time Temp Pulse Resp B/P (MAP) Pulse Ox O2 Delivery O2 Flow Rate FiO2 05/06/25 16:00 123 05/06/25 15:00 100/59 05/06/25 14:00 27 96 05/06/25 08:00 98.4 98.4 05/06/25 08:00 Room Air* 0 21 Intake/Output Intake and Output 05/06/25 07:00 Intake Total 2253.75 ml Balance 2253.75 ml Intake IV Total 2253.75 ml Exam HEENT pupils are reactive Neck is supple CV is S1-S2 irregularly irregular rate and rhythm Respiratory bilateral clear GI positive bowel sound Extremity no edema POST FRAMER no motor deficit Medications Current Medications Medications Dose Ordered Sig/David Route Start Time Stop Time Status Last Admin Dose Admin Acetaminophen/ Hydrocodone Bitart 1 tab Q4HP PRN PO 05/05/25 15:30 Ondansetron HCl 4 mg Q4HP PRN IV 05/05/25 15:30 Docusate Sodium 100 mg BIDPRN PRN PO 05/05/25 15:30 Acetaminophen 650 mg Q6HP PRN PO 05/05/25 15:30 Vancomycin HCl 0 ml @ 0 mls/hr UD IV 05/05/25 15:45 Patient Own Medication 1 tab DAILY PO 05/06/25 10:00 Patient Own Medication 1 tab DAILY PO 05/06/25 10:00 UNV Patient Own Medication 1 tab DAILY PO 05/06/25 10:00 UNV Patient Own Medication 1 tab HS PO 05/05/25 22:00 Fluoxetine HCl 60 mg DAILY PO 05/06/25 10:00 05/06/25 10:29 60 MG Levothyroxine Sodium 75 mcg QAM@0600 PO 05/06/25 06:00 05/06/25 06:16 75 MCG Levofloxacin 50 ml @ 50 mls/hr DAILY IV 05/06/25 10:00 05/06/25 10:29 50 MLS/HR Metoprolol Tartrate 50 mg BID PO 05/06/25 10:00 05/06/25 10:46 50 MG Amiodarone HCL/ Dextrose 200 ml @ 16.66 mls/ hr Q12H IV 05/06/25 17:45 Norepinephrine Bitartrate 250 ml @ 3.75 mls/hr Q24H IV 05/06/25 12:45 05/06/25 12:45 3.75 MLS/HR Laboratory Results Laboratory Tests 05/06/25 05:21 Chemistry Test 05/06/25 05:21 Albumin 3.3 g/dL (3.2-4.8) Calcium Level 8.8 mg/dL (8.7-10.4) Magnesium Level 2.1 mg/dL (1.6-2.6) Total Protein 6.0 g/dL (5.7-8.2) Lipid panel Test 05/06/25 05:21 Cholesterol Level 97 mg/dL (< 200) HDL Cholesterol 11 mg/dL (40-59) L Triglycerides Level 135 mg/dL (< 150) LFT Test 05/06/25 05:21 Alanine Aminotransferase (ALT) < 9 U/L (7-40) Alkaline Phosphatase 102 U/L (46-116) Aspartate Amino Transferase (AST) 23 U/L (13-40) Total Bilirubin 0.6 mg/dL (0.2-1.0) HgA1c, TSH Test 05/06/25 05:21 Hemoglobin A1c 5.6 % A1C (<5.7) Thyroid Stimulating Hormone (TSH) 3.12 uIU/mL (0.55-4.78) Urinalysis Test 05/06/25 09:30 Urine Color Light-orange (Yellow) Urine Clarity Ex.turbid (Clear) Urine pH 5.0 (5.0-9.0) Urine Specific [place] 1.021 (1.001-1.035) Urine Protein 1+ (Negative) H Urine Ketones Negative (Negative) Urine Blood 1+ /uL (Negative) H Urine Nitrite Negative (Negative) Urine Bilirubin Negative (Negative) Urine Urobilinogen 2 mg/dL (Negative) H Urine Leukocyte Esterase Negative /uL (Negative) Urine RBC 7 /hpf (0 - 4) Urine Microscopic WBC 7 /HPF (0-5) H Urine Squamous Epithelial Cells Few /hpf (<5) Urine Amorphous Crystals Mod /hpf (None Seen) Urine Bacteria None seen /hpf (None Seen) Urine Hyaline Casts Mod /lpf (0 - 2) Urine Mucus Few (None Seen) Urine Glucose Trace mg/dL (Normal) Microbiology Microbiology Date/Time Source Procedure Growth Status 05/05/25 11:20 Voided Urine Urine Culture - Preliminary Resulted 05/05/25 10:05 Blood Blood Culture - Preliminary NO GROWTH AFTER 24 HOURS OF INCUBATION. Resulted Assessment/Plan Assessment/Plan 69-year-old female who has a known history of chronic AFib status post cardiac ablation in the past, presented to the hospital with generalized weakness shortness of breath dizziness and altered mental status found to have 1. AFib with a RVR with a hemodynamically instability status post cardioversion, currently paroxysmal AFib rate controlled on IV amiodarone drip. 2. Hypotension suspect septic shock/cardiogenic shock currently on Levophed 3. Sepsis suspected secondary to right-sided pneumonia/UTI 4. Right-sided pneumonia 5. Leukocytosis 6. Acute kidney injury suspected secondary to vasomotor nephropathy currently improving 7. Hypothyroidism 8. Anxiety disorder 9. Recent history of left knee replacement -continue IV antibiotics, continue IV amiodarone, IV Levophed, follow up final cultures -continue to monitor on telemetry/D OU, 2D echo cardiology consultation appreciated. Plan discussed with: Patient, Spouse Date of Service: May 06, 2025 Billing Provider: DENIS OMER MD Common Visit Codes: [id number] INP/OBS CARE(MOD) DENIS OMER MD May 06, 2025 17:00
[2025-05-06] MEDS: AMIODARONE 360mg/200mL PREMIX 200 ML IV SCH (17:55)
[2025-05-06 19:30] VITALS: PULSE 109; RESP 18; O2SAT 95
[2025-05-06] MEDS: ACETAMINOPHEN 325 MG TAB PO PRN (20:44)
[2025-05-06 20:53] VITALS: PULSE 125; RESP 23; O2SAT 93
[2025-05-06] MEDS: AMIODARONE 150mg/100ml PREMIX BAG (BOLUS) IV ONE (23:43)
[2025-05-07] VITALS (22 sets, daily range): BP systolic 115–131; BP diastolic 59–79; PULSE 87–139; RESP 13–35; TEMP 98.4; O2SAT 92–97
[2025-05-07] MEDS: AMIODARONE 150mg/100ml PREMIX BAG (BOLUS) IV ONE (00:30)
[2025-05-07] MEDS: AMIODARONE 360mg/200mL PREMIX 200 ML IV ONE (01:00)
[2025-05-07 04:51] LABS: Magnesium 2.0 mg/dL (1.6-2.6)
[2025-05-07] MEDS: AMIODARONE 360mg/200mL PREMIX 200 ML IV SCH (07:00)
[2025-05-07 08:13] LABS: Hematocrit 27.9 % (36.0-46.0); Hemoglobin 9.5 g/dL (12.2-16.2); Mean Corpuscular Hemoglobin 28.4 pg (28.0-32.0); Mean Corpuscular Volume 83.8 fL (80.0-100.0); Nucleated Red Blood Cells % 0.1 %
[2025-05-07 08:25] LABS: Chloride 103 mmol/L (98-107); Potassium 4.0 mmol/L (3.5-5.1)
[2025-05-07 08:26] LABS: Anion Gap 8 (5-15); Carbon Dioxide 20 mmol/L (20-31)
[2025-05-07 08:29] LABS: Calcium 8.6 mg/dL (8.7-10.4); Sodium 131 mmol/L (136-145)
[2025-05-07 08:31] LABS: BUN/Creatinine Ratio 36.0 (10.0-20.0)
[2025-05-07 08:33] LABS: Blood Urea Nitrogen 31 mg/dL (9-23); Glucose 128 mg/dL (74-106)
[2025-05-07] MEDS: ENOXAPARIN SOD 100 MG/1 ML SYRINGE SC SCH (10:22)
[2025-05-07] MEDS: VANCOMYCIN 500mg/100mL 100 ML IV SCH (12:59)
--- NOTE | 2025-05-07 14:44 | DVHPN2 ---
Subjective Patient is status post SVT status post adenosine then went into AFib with RVR with a hemodynamically instability including hypotension and heart rate into 170 status post cardioversion. Currently in paroxysmal AFib with a rate controlled on IV amiodarone drip as well as Levophed drip. Changes from previous H/P or p: No Changes Eyes: No Pain, No Vision change, No Conjunctivae inflammation, No Eyelid inflammation, No Other, No Redness ENT: No Ear pain, No Ear discharge, No Nose pain, No Nose discharge, No Nose congestion, No Mouth pain, No Mouth swelling, No Throat pain, No Throat swelling, No Other Cardiovascular: No Chest Pain, No Palpitations, No Orthopnea, No Paroxysmal Noc. Dyspnea, No Edema, No Lt Headedness, No Other Respiratory: No Cough, No Dry, No Shortness of breath, No SOB with excertion, No Wheezing, No Hemoptysis, No Pleuritic Pain, No Sputum, No Other Gastrointestinal: No Nausea, No Vomiting, No Abdominal Pain, No Diarrhea, No Constipation, No Melena, No Hematochezia, No Other Genitourinary: No Dysuria, No Frequency, No Incontinence, No Hematuria, No Retention, No Other Musculoskeletal: No other, No neck pain, No shoulder pain, No arm pain, No back pain, No hand pain, No leg pain, No foot pain Skin: No Rash, No Lesions, No Jaundice, No Bruising, No Other Objective Vitals Vital Signs Date Time Temp Pulse Resp B/P (MAP) Pulse Ox O2 Delivery O2 Flow Rate FiO2 05/07/25 14:00 110/81 05/07/25 11:45 119 28 95 05/07/25 10:30 98.2 98.2 05/07/25 08:31 Nasal Cannula* 2 28 Intake/Output Intake and Output 05/07/25 07:00 Intake Total 2010.62 ml Balance 2010.62 ml Intake IV Total 2010.62 ml Exam HEENT pupils are reactive Neck is supple CV is S1-S2 irregularly irregular rate and rhythm Respiratory bilateral clear GI positive bowel sound 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 Medications Current Medications Medications Dose Ordered Sig/David Route Start Time Stop Time Status Last Admin Dose Admin Acetaminophen/ Hydrocodone Bitart 1 tab Q4HP PRN PO 05/05/25 15:30 Ondansetron HCl 4 mg Q4HP PRN IV 05/05/25 15:30 Docusate Sodium 100 mg BIDPRN PRN PO 05/05/25 15:30 Acetaminophen 650 mg Q6HP PRN PO 05/05/25 15:30 05/06/25 20:44 650 MG Vancomycin HCl 0 ml @ 0 mls/hr UD IV 05/05/25 15:45 Patient Own Medication 1 tab DAILY PO 05/06/25 10:00 Patient Own Medication 1 tab DAILY PO 05/06/25 10:00 UNV Patient Own Medication 1 tab DAILY PO 05/06/25 10:00 UNV Patient Own Medication 1 tab HS PO 05/05/25 22:00 Fluoxetine HCl 60 mg DAILY PO 05/06/25 10:00 05/07/25 10:22 60 MG Levothyroxine Sodium 75 mcg QAM@0600 PO 05/06/25 06:00 05/07/25 06:12 75 MCG Levofloxacin 50 ml @ 50 mls/hr DAILY IV 05/06/25 10:00 05/07/25 10:19 50 MLS/HR Metoprolol Tartrate 50 mg BID PO 05/06/25 10:00 05/07/25 10:22 50 MG Norepinephrine Bitartrate 250 ml @ 3.75 mls/hr Q24H IV 05/06/25 12:45 05/06/25 12:45 3.75 MLS/HR Amiodarone HCL/ Dextrose 200 ml @ 16.66 mls/ hr Q12H IV 05/07/25 07:00 05/07/25 07:00 16.66 MLS/HR Enoxaparin Sodium 100 mg Q12HR SC 05/07/25 10:00 05/07/25 10:22 100 MG Vancomycin HCl 100 ml @ 200 mls/hr Q12H IV 05/07/25 12:00 05/07/25 12:59 200 MLS/HR Laboratory Results Laboratory Tests 05/07/25 08:06 Chemistry Test 05/07/25 04:12 05/07/25 08:06 Magnesium Level 2.0 mg/dL (1.6-2.6) Calcium Level 8.6 mg/dL (8.7-10.4) L Urinalysis Test 05/06/25 09:30 Urine Color Light-orange (Yellow) Urine Clarity Ex.turbid (Clear) Urine pH 5.0 (5.0-9.0) Urine Specific [place] 1.021 (1.001-1.035) Urine Protein 1+ (Negative) H Urine Ketones Negative (Negative) Urine Blood 1+ /uL (Negative) H Urine Nitrite Negative (Negative) Urine Bilirubin Negative (Negative) Urine Urobilinogen 2 mg/dL (Negative) H Urine Leukocyte Esterase Negative /uL (Negative) Urine RBC 7 /hpf (0 - 4) Urine Microscopic WBC 7 /HPF (0-5) H Urine Squamous Epithelial Cells Few /hpf (<5) Urine Amorphous Crystals Mod /hpf (None Seen) Urine Bacteria None seen /hpf (None Seen) Urine Hyaline Casts Mod /lpf (0 - 2) Urine Mucus Few (None Seen) Urine Glucose Trace mg/dL (Normal) Microbiology Microbiology Date/Time Source Procedure Growth Status 05/05/25 11:20 Voided Urine Urine Culture - Preliminary Resulted 05/05/25 10:05 Blood Blood Culture - Preliminary NO GROWTH AFTER 48 HOURS OF INCUBATION. Resulted Assessment/Plan Assessment/Plan 69-year-old female who has a known history of chronic AFib status post cardiac ablation in the past, presented to the hospital with generalized weakness shortness of breath dizziness and altered mental status found to have 1. AFib with a RVR with a hemodynamically instability status post cardioversion, currently paroxysmal AFib rate controlled on IV amiodarone drip. 2. Hypotension suspect septic shock/cardiogenic shock currently on Levophed 3. Sepsis suspected secondary to right-sided pneumonia/UTI 4. Right-sided pneumonia 5. Leukocytosis 6. Acute kidney injury suspected secondary to vasomotor nephropathy currently improving 7. Hypothyroidism 8. Anxiety disorder 9. Recent history of left knee replacement -continue IV antibiotics, continue IV amiodarone, IV Levophed, follow up final cultures -continue to monitor on telemetry/D OU, 2D echo cardiology consultation appreciated. Plan discussed with: Patient, Spouse My Orders Orders - DENIS OMER MD Procedure Category Date Status Time * Wound Consult CONS 05/07/25 Transmitted Date of Service: May 07, 2025 Billing Provider: DENIS OMER MD Common Visit Codes: [id number] INP/OBS CARE(MOD) DENIS OMER MD May 07, 2025 14:44
--- NOTE | 2025-05-07 16:13 | DVHPN2 ---
Consult Progress Note Subjective Other Systems: Patient remains in atrial fibrillation with uncontrolled rate on monitor Denies any cardiac symptoms at time of assessment Objective vital signs Vital Sign Date Time Temp Pulse Resp B/P (MAP) Pulse Ox O2 Delivery O2 Flow Rate FiO2 05/07/25 14:00 110/81 05/07/25 12:45 133 28 93 05/07/25 10:30 98.2 98.2 05/07/25 08:31 Nasal Cannula* 2 28 Total Intake and Output 05/06/25 05/06/25 05/07/25 15:00 23:00 07:00 Intake Total 1357.49 ml 459.57 ml 194.56 ml Balance 1357.49 ml 459.57 ml 194.56 ml medications Current Medications Medications Dose Ordered Sig/David Route Start Time Stop Time Status Last Admin Dose Admin Acetaminophen/ Hydrocodone Bitart 1 tab Q4HP PRN PO 05/05/25 15:30 Ondansetron HCl 4 mg Q4HP PRN IV 05/05/25 15:30 Docusate Sodium 100 mg BIDPRN PRN PO 05/05/25 15:30 Acetaminophen 650 mg Q6HP PRN PO 05/05/25 15:30 05/06/25 20:44 650 MG Vancomycin HCl 0 ml @ 0 mls/hr UD IV 05/05/25 15:45 Patient Own Medication 1 tab DAILY PO 05/06/25 10:00 Patient Own Medication 1 tab DAILY PO 05/06/25 10:00 UNV Patient Own Medication 1 tab DAILY PO 05/06/25 10:00 UNV Patient Own Medication 1 tab HS PO 05/05/25 22:00 Fluoxetine HCl 60 mg DAILY PO 05/06/25 10:00 05/07/25 10:22 60 MG Levothyroxine Sodium 75 mcg QAM@0600 PO 05/06/25 06:00 05/07/25 06:12 75 MCG Levofloxacin 50 ml @ 50 mls/hr DAILY IV 05/06/25 10:00 05/07/25 10:19 50 MLS/HR Metoprolol Tartrate 50 mg BID PO 05/06/25 10:00 05/07/25 10:22 50 MG Norepinephrine Bitartrate 250 ml @ 3.75 mls/hr Q24H IV 05/06/25 12:45 05/06/25 12:45 3.75 MLS/HR Amiodarone HCL/ Dextrose 200 ml @ 16.66 mls/ hr Q12H IV 05/07/25 07:00 05/07/25 07:00 16.66 MLS/HR Enoxaparin Sodium 100 mg Q12HR SC 05/07/25 10:00 05/07/25 10:22 100 MG Vancomycin HCl 100 ml @ 200 mls/hr Q12H IV 05/07/25 12:00 05/07/25 12:59 200 MLS/HR Examination: GENERAL:Abnormal (Generalized weakness), LUNGS:Abnormal (Diminished bases), CVS:Abnormal (Atrial fibrillation with uncontrolled rate), NEURO:Normal laboratory and microbiology Laboratory Tests 05/07/25 08:06 Test 05/07/25 08:06 Range/Units Serum Glucose 128 H 74-106 mg/dL Problem List/Assessment/Plan Problem List/Assessment/Plan Atrial fibrillation with rapid ventricular response status post direct current cardioversion History of atrial fibrillation status post ablation (on Eliquis) Rule out structural heart disease Sepsis Pneumonia History of hypertension Acute kidney injury Hyperkalemia, resolved Acute on chronic anemia Thyroid disease status post partial thyroidectomy Plan/Recommendation (Dr. Estrada): We will proceed with obtaining a transthoracic echocardiogram to evaluate cardiac function. [id number] VASc score: 3 points. HAS-BLED score: 2 points. We will continue with the IV amiodarone per protocol. The patient was initiated on vasopressors for hemodynamic support. Unable to continue beta-blockers given hypotension. We will initiate a loading dose of digoxin therapy. Therapeutic Lovenox while inpatient, transition back to low-dose DOAC prior to discharge. Continue with antibiotics per primary care team. Pending blood cultures. Order D-dimer. Continue with close cardiac surveillance. Thank you for allowing us to care for this patient. Please call with any questions or concerns. Critical care time spent: 38 minutes. This medical document was created using an electronic medical record system with voice recognition software and computerized dictation system. Although this document has been carefully reviewed, there might still be some phonetic and typographical errors. Occasional wrong-word or ``sound-alike substitutions may have occurred due to the inherent limitations of voice recognition software. These areas are purely typographical due to imperfections of the software programs and do not reflect any compromise in the patient's medical care. Please read the chart carefully and recognize, using context, where these substitutions have occurred. Plan discussed with: Patient Date of Service: May 07, 2025 Billing Provider: MORALES KAY Common Visit Codes: [id number] CARE 30-74 MIN MORALES KAY May 07, 2025 16:13
[2025-05-07] MEDS: DIGOXIN (250MCG/ML) 2 ML AMPULE IV ONE (17:10)
--- NOTE | 2025-05-07 18:24 | DVH ---
EXAM: US BILAT LOWER DVT Clinical History: rule out DVT Comparison: None Technique: Duplex Doppler evaluation of the deep venous systems of both lower extremities from the common femora l veins to the popliteal veins including color Doppler and spectral/pulsed waveform analysis was perf ormed. Findings: No visible intraluminal venous thrombus. No evidence of incompressibility or abnormal color or spectr al Doppler flow visualized in the deep bilateral lower extremity veins. Proximal greater saphenous ve ins are grossly unremarkable. The left popliteal and trifurcation are not visualized due to overlying bandages. Impression: 1. No sonographic evidence of deep venous thrombosis throughout the generalized bilateral lower extre mities from the popliteal veins to the common femoral veins.
[2025-05-07] MEDS: IOHEXOL 350 MG/ML 100ML IJ ONE (18:28)
--- NOTE | 2025-05-07 19:07 | DVH ---
EXAM: CT CT ANGIO CHEST CONTRAST History: rule out PE, elevated d dimer Comparison Study: None TECHNIQUE: A digital caregivers non medical image was obtained. During the uneventful, intravenous administration of c ontrast material, multislice data acquisition was obtained through the chest. 3-D postprocessing is performed by technologist including MIP imaging Radiation Dose : CTDI vol 25.31 mGy, DLP 848.42 mGy*cm. Findings: Lungs: Bilateral dependent atelectasis. Pleura: Trace left pleural effusion. Heart/Great vessels: No cardiomegaly or pericardial effusion. Left atrial enlargement. Enlarged pulmo nary trunk and main pulmonary arteries. No pulmonary embolism, aneurysm, or dissection. Mediastinum: Unremarkable Soft tissues/Bones: Mild to moderate multilevel degenerative changes of the thoracic spine. Cholecystectomy. Impression: 1. No evidence of a pulmonary embolism, aneurysm, or dissection. 2. Enlarged pulmonary trunk and main pulmonary arteries. Correlate for pulmonary artery hypertension.
[2025-05-08] VITALS (80 sets, daily range): BP systolic 89–153; BP diastolic 53–105; PULSE 71–162; RESP 12–31; TEMP 98.2; O2SAT 92–100
[2025-05-08 08:04] LABS: Anion Gap 9 (5-15); Carbon Dioxide 23 mmol/L (20-31); Chloride 99 mmol/L (98-107); Potassium 3.6 mmol/L (3.5-5.1)
[2025-05-08 08:06] LABS: Calcium 8.8 mg/dL (8.7-10.4)
[2025-05-08 08:09] LABS: Sodium 131 mmol/L (136-145)
[2025-05-08 08:10] LABS: BUN/Creatinine Ratio 31.5 (10.0-20.0)
[2025-05-08 08:12] LABS: Blood Urea Nitrogen 23 mg/dL (9-23); Glucose 131 mg/dL (74-106)
[2025-05-08 08:27] LABS: Hemoglobin 9.0 g/dL (12.2-16.2)
[2025-05-08 08:29] LABS: Hematocrit 27.0 % (36.0-46.0); Mean Corpuscular Hemoglobin 28.4 pg (28.0-32.0); Mean Corpuscular Volume 84.5 fL (80.0-100.0); Nucleated Red Blood Cells % 0.0 %
--- NOTE | 2025-05-08 08:38 | DVH ---
EXAM: XY CHEST XRAY 1 VIEW Indication: SOB Technique: Single frontal view of the chest was obtained Comparison: XY CHEST XRAY 1 VIEW on DOS: 05/05/25, XY CHEST PORTABLE on DOS: 05/05/25 FINDINGS: Lines and Tubes: Right internal jugular central venous catheter tip projects over the cavoatrial junc tion. Lungs: No focal consolidation. Pleura: No effusion. No pneumothorax. Cardiomediastinal contours: Unremarkable Bones: No acute osseous abnormality. IMPRESSION: No acute cardiopulmonary disease.
--- NOTE | 2025-05-08 11:03 | DVHPN2 ---
Consult Progress Note Subjective Other Systems: Patient remains in atrial fibrillation with uncontrolled rate on teletypesetter monitor. The patient denies any cardiac symptoms at time of assessment Objective vital signs Vital Sign Date Time Temp Pulse Resp B/P (MAP) Pulse Ox O2 Delivery O2 Flow Rate FiO2 05/08/25 08:05 124 05/08/25 08:05 12 99 Nasal Cannula* 2 28 05/08/25 07:31 115/68 (84) 05/07/25 20:53 98.4 98.4 Total Intake and Output 05/07/25 05/07/25 05/08/25 15:00 23:00 07:00 Intake Total 150 ml 87.48 ml 816.62 ml Output Total 1400 ml Balance 150 ml 87.48 ml -583.38 ml medications Current Medications Medications Dose Ordered Sig/David Route Start Time Stop Time Status Last Admin Dose Admin Acetaminophen/ Hydrocodone Bitart 1 tab Q4HP PRN PO 05/05/25 15:30 Ondansetron HCl 4 mg Q4HP PRN IV 05/05/25 15:30 Docusate Sodium 100 mg BIDPRN PRN PO 05/05/25 15:30 Acetaminophen 650 mg Q6HP PRN PO 05/05/25 15:30 05/06/25 20:44 650 MG Vancomycin HCl 0 ml @ 0 mls/hr UD IV 05/05/25 15:45 Patient Own Medication 1 tab DAILY PO 05/06/25 10:00 Patient Own Medication 1 tab DAILY PO 05/06/25 10:00 UNV Patient Own Medication 1 tab DAILY PO 05/06/25 10:00 UNV Patient Own Medication 1 tab HS PO 05/05/25 22:00 Fluoxetine HCl 60 mg DAILY PO 05/06/25 10:00 05/08/25 10:22 60 MG Levothyroxine Sodium 75 mcg QAM@0600 PO 05/06/25 06:00 05/08/25 05:43 75 MCG Levofloxacin 50 ml @ 50 mls/hr DAILY IV 05/06/25 10:00 05/08/25 10:22 50 MLS/HR Norepinephrine Bitartrate 250 ml @ 3.75 mls/hr Q24H IV 05/06/25 12:45 05/06/25 12:45 3.75 MLS/HR Amiodarone HCL/ Dextrose 200 ml @ 16.66 mls/ hr Q12H IV 05/07/25 07:00 05/08/25 06:31 16.66 MLS/HR Enoxaparin Sodium 100 mg Q12HR SC 05/07/25 10:00 05/08/25 10:23 100 MG Vancomycin HCl 100 ml @ 200 mls/hr Q12H IV 05/07/25 12:00 05/08/25 01:12 200 MLS/HR Examination: GENERAL:Abnormal (Generalized weakness), LUNGS:Normal, CVS:Abnormal (Atrial fibrillation with uncontrolled rate (rate 120's during assessment)) laboratory and microbiology Laboratory Tests 05/08/25 07:15 Test 05/08/25 07:15 Range/Units Serum Glucose 131 H 74-106 mg/dL Problem List/Assessment/Plan Problem List/Assessment/Plan Atrial fibrillation with rapid ventricular response status post direct current cardioversion History of atrial fibrillation status post ablation (on Eliquis) Rule out structural heart disease Sepsis Pneumonia History of hypertension Acute kidney injury Hyperkalemia, resolved Acute on chronic anemia Thyroid disease status post partial thyroidectomy Plan/Recommendation (Dr. Estrada): We will proceed with obtaining a transthoracic echocardiogram to evaluate cardiac function. [id number] VASc score: 3 points. HAS-BLED score: 2 points. We will continue with the IV amiodarone per protocol. The patient is now off of vasopressors, we will initiate beta-dejah for rate control as tolerated by blood pressure. Therapeutic Lovenox while inpatient, transition back to low- dose DOAC prior to discharge. Continue with antibiotics per primary care team. Pending blood cultures. Continue with close cardiac surveillance. Thank you for allowing us to care for this patient. Please call with any questions or concerns. Critical care time spent: 38 minutes. This medical document was created using an electronic medical record system with voice recognition software and computerized dictation system. Although this document has been carefully reviewed, there might still be some phonetic and typographical errors. Occasional wrong-word or ``sound-alike substitutions may have occurred due to the inherent limitations of voice recognition software. These areas are purely typographical due to imperfections of the software programs and do not reflect any compromise in the patient's medical care. Please read the chart carefully and recognize, using context, where these substitutions have occurred. Plan discussed with: Patient, Spouse, Other (Bedside RN) Date of Service: May 08, 2025 Billing Provider: MORALES KAY Common Visit Codes: [id number] CARE 30-74 MIN MORALES KAY May 08, 2025 11:03
[2025-05-08] MEDS: METOPROLOL TARTRATE 25 MG TAB PO ONE ×2 (12:38→17:22)
--- NOTE | 2025-05-08 12:49 | DVHPN2 ---
Subjective Patient is status post SVT status post adenosine then went into AFib with RVR with a hemodynamically instability including hypotension and heart rate into 170 status post cardioversion. Currently in paroxysmal AFib with a rate controlled on IV amiodarone drip , Levophed drip is off Changes from previous H/P or p: No Changes Eyes: No Pain, No Vision change, No Conjunctivae inflammation, No Eyelid inflammation, No Other, No Redness ENT: No Ear pain, No Ear discharge, No Nose pain, No Nose discharge, No Nose congestion, No Mouth pain, No Mouth swelling, No Throat pain, No Throat swelling, No Other Cardiovascular: No Chest Pain, No Palpitations, No Orthopnea, No Paroxysmal Noc. Dyspnea, No Edema, No Lt Headedness, No Other Respiratory: No Cough, No Dry, No Shortness of breath, No SOB with excertion, No Wheezing, No Hemoptysis, No Pleuritic Pain, No Sputum, No Other Gastrointestinal: No Nausea, No Vomiting, No Abdominal Pain, No Diarrhea, No Constipation, No Melena, No Hematochezia, No Other Genitourinary: No Dysuria, No Frequency, No Incontinence, No Hematuria, No Retention, No Other Musculoskeletal: No other, No neck pain, No shoulder pain, No arm pain, No back pain, No hand pain, No leg pain, No foot pain Skin: No Rash, No Lesions, No Jaundice, No Bruising, No Other Objective Vitals Vital Signs Date Time Temp Pulse Resp B/P (MAP) Pulse Ox O2 Delivery O2 Flow Rate FiO2 05/08/25 12:38 137 123/75 05/08/25 08:05 12 99 Nasal Cannula* 2 28 05/07/25 20:53 98.4 98.4 Intake/Output Intake and Output 05/08/25 07:00 Intake Total 1054.10 ml Output Total 1400 ml Balance -345.90 ml Intake Oral 600 ml IV Total 454.10 ml Output Urine Total 1400 ml Exam HEENT pupils are reactive Neck is supple CV is S1-S2 irregularly irregular rate and rhythm Respiratory bilateral clear GI positive bowel sound 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 Medications Current Medications Medications Dose Ordered Sig/David Route Start Time Stop Time Status Last Admin Dose Admin Acetaminophen/ Hydrocodone Bitart 1 tab Q4HP PRN PO 05/05/25 15:30 Ondansetron HCl 4 mg Q4HP PRN IV 05/05/25 15:30 Docusate Sodium 100 mg BIDPRN PRN PO 05/05/25 15:30 Acetaminophen 650 mg Q6HP PRN PO 05/05/25 15:30 05/06/25 20:44 650 MG Vancomycin HCl 0 ml @ 0 mls/hr UD IV 05/05/25 15:45 Patient Own Medication 1 tab DAILY PO 05/06/25 10:00 Patient Own Medication 1 tab DAILY PO 05/06/25 10:00 UNV Patient Own Medication 1 tab DAILY PO 05/06/25 10:00 UNV Patient Own Medication 1 tab HS PO 05/05/25 22:00 Fluoxetine HCl 60 mg DAILY PO 05/06/25 10:00 05/08/25 10:22 60 MG Levothyroxine Sodium 75 mcg QAM@0600 PO 05/06/25 06:00 05/08/25 05:43 75 MCG Levofloxacin 50 ml @ 50 mls/hr DAILY IV 05/06/25 10:00 05/08/25 10:22 50 MLS/HR Amiodarone HCL/ Dextrose 200 ml @ 16.66 mls/ hr Q12H IV 05/07/25 07:00 05/08/25 06:31 16.66 MLS/HR Enoxaparin Sodium 100 mg Q12HR SC 05/07/25 10:00 05/08/25 10:23 100 MG Vancomycin HCl 100 ml @ 200 mls/hr Q12H IV 05/07/25 12:00 05/08/25 01:12 200 MLS/HR Laboratory Results Laboratory Tests 05/08/25 07:15 Chemistry Test 05/08/25 07:15 Calcium Level 8.8 mg/dL (8.7-10.4) Coagulation Test 05/07/25 16:28 D-Dimer, Quantitative 9.33 mg/L FEU (0.0-0.49) H Urinalysis Test 05/06/25 09:30 Urine Color Light-orange (Yellow) Urine Clarity Ex.turbid (Clear) Urine pH 5.0 (5.0-9.0) Urine Specific [place] 1.021 (1.001-1.035) Urine Protein 1+ (Negative) H Urine Ketones Negative (Negative) Urine Blood 1+ /uL (Negative) H Urine Nitrite Negative (Negative) Urine Bilirubin Negative (Negative) Urine Urobilinogen 2 mg/dL (Negative) H Urine Leukocyte Esterase Negative /uL (Negative) Urine RBC 7 /hpf (0 - 4) Urine Microscopic WBC 7 /HPF (0-5) H Urine Squamous Epithelial Cells Few /hpf (<5) Urine Amorphous Crystals Mod /hpf (None Seen) Urine Bacteria None seen /hpf (None Seen) Urine Hyaline Casts Mod /lpf (0 - 2) Urine Mucus Few (None Seen) Urine Glucose Trace mg/dL (Normal) Microbiology Microbiology Date/Time Source Procedure Growth Status 05/05/25 11:20 Voided Urine Urine Culture - Final Complete 05/05/25 10:05 Blood Blood Culture - Preliminary NO GROWTH AFTER 72 HOURS OF INCUBATION. Resulted Assessment/Plan Assessment/Plan 69-year-old female who has a known history of chronic AFib status post cardiac ablation in the past, presented to the hospital with generalized weakness shortness of breath dizziness and altered mental status found to have 1. AFib with a RVR with a hemodynamically instability status post cardioversion, currently paroxysmal AFib rate controlled on IV amiodarone drip. 2. Hypotension suspect septic shock/cardiogenic shock currently on Levophed 3. Sepsis suspected secondary to right-sided pneumonia/UTI 4. Right-sided pneumonia 5. Leukocytosis 6. Acute kidney injury suspected secondary to vasomotor nephropathy currently improving 7. Hypothyroidism 8. Anxiety disorder 9. Recent history of left knee replacement -continue IV antibiotics, continue IV amiodarone, blood culture negative to date, -downgraded to telemetry. Plan discussed with: Patient, Spouse Date of Service: May 08, 2025 Billing Provider: DENIS OMER MD Common Visit Codes: [id number] INP/OBS CARE(MOD) DENIS OMER MD May 08, 2025 12:49
[2025-05-08] MEDS: DOCUSATE SOD 100 MG CAP PO PRN (17:20)
[2025-05-08] MEDS: DIGOXIN (250MCG/ML) 2 ML AMPULE IV ONE (17:27)
[2025-05-08] MEDS: AMIODARONE 450mg/250ml AE 250 ML IV SCH (19:30)
[2025-05-08] MEDS ORDERED: AMIODARONE 450mg/250ml AE 250 ML IV SCH (20:00)
--- NOTE | 2025-05-08 20:52 | DVH ---
Exam: CT CT AB PEL WO CON-NO ORAL OR IV History: ABD PAIN, NO BM X 5 DAYS Comparison Study: None TECHNIQUE: Multidetector CT of the abdomen was performed from lung bases to pubic symphysis. Imaging was performed without IV contrast. Axial, coronal and sagittal multiplanar reformats were obtained fr om the axial data set by the technologist. Radiation Dose Information: CT Dose: CTDI volume is 25.08 mGy. Dose-length product is 1488.87 mGy*cm FINDINGS: Evaluation of solid organs is limited due to lack of intravenous contrast use. Findings: Lung Bases: Small left pleural effusion.. Normal heart size. No pleural or pericardial effusion. Liver: The liver is normal in size. No focal lesions. Gallbladder and Biliary Tree: Gallbladder has been surgically removed. Spleen: Unremarkable Pancreas: The pancreas is grossly normal in appearance. Adrenal Glands: Unremarkable Kidneys: Kidneys are grossly normal without calculi or hydronephrosis. Bladder: Abel catheter in the bladder Bowel: The stomach is grossly normal in appearance. Dilated fluid-filled small bowel can not exclude small bowel obstruction small-bowel follow-through stool throughout the colon The appendix is not vi sualized; however, no secondary findings of acute appendicitis identified. Stool-filled rectosigmoid colon. Ascites: Absent Lymphadenopathy: No mesenteric, retroperitoneal or periportal lymphadenopathy. Abdominal Wall and Mesentery: Unremarkable. Vasculature: The visualized abdominal aorta is normal in size and caliber. Evaluation of abdominal a nd pelvic vessels is limited due to lack of intravenous contrast. Pelvic Organs: Unremarkable Musculoskeletal: No aggressive focal bony lesions, acute fractures or dislocation. Severe osteoarthri tic changes left hip with complete loss joint space subchondral cyst both the acetabulum and femoral head. Soft tissues: Unremarkable IMPRESSION: 1. Dilated fluid-filled small bowel can not exclude small bowel obstruction consider small-bowel foll ow-through for further evaluation. 2. Small left pleural effusion and atelectasis 3. Abel catheter in the bladder contrast also seen in the bladder. 4. Severe osteoarthritic changes left hip 5. Bony spondylosis degenerative disc changes L3-4 and 5. 6. Stool-filled rectosigmoid colon with mildly distended fluid-filled left colon. Findings may repres ent fecal impaction. Radiation optimization: All CT scans at this facility use at least one of these dose optimization jany hniques: automated exposure control mA and/or kV adjustment per patient size (includes targeted exam s where dose is matched to clinical indication) or iterative reconstruction.
[2025-05-08] MEDS: AMIODARONE 360mg/200mL PREMIX 200 ML IV SCH (22:00)
--- NOTE | 2025-05-09 01:49 | DVHSR ---
APPROVED REPORT EXAM: LIMITED Two-dimensional and M-mode echocardiogram with Doppler and color Doppler. Blood Pressure: 83/62 mmHg INDICATION Evaluate Cardiac Function RISK FACTORS Height: 5' 10", Weight: 219 DIMENSIONS LVDd4.7 (3.8-5.7cm)LA (2D)4.1 (1.9-4.0cm)Aortic Root3.3 (2.0-3.7cm) LVDs3.5 (2.5-4.0cm)LA (MM) (1.9-4.0cm)Aortic Cusp Exc1.6 (1.5-2.0cm) EF (%) 50.0 (55-70%)Rt. Atrium5.1 (1.9-4.0cm)Asc. Aorta cm IVSd1.1 (0.7-1.1cm)RV (D) (1.8-2.4cm) PWd0.9 (0.7-1.1cm) Mitral Valve MitralMitral Stenosis E/A ratio0.02D MVAcm2 Aortic Valve Aortic ValveAortic Stenosis V11.50m/Annamaria Mean GR.19mmHg V23.20m/Annamaria Peak GR.42mmHg LVOT Diameter2.0 (1.8-2.4cm)Doppler AVA1.47cm2 AI P 1/2 Blal596.92ms Pulmonic Valve V21.60m/s Tricuspid Valve TR Velocity3.30m/s [id number] Other Information Quality : Technically LimitedRhythm : Atrial Fibrillation Technically limited study due to body habitus. Conclusion HYPERDYNAMIC LV MODERATE DEGREE LVH AND MODERATE DEGREE LV DIASTOLIC DYSFUNCTION LV EF IS 70% DYSKINESIS OF IVS MODERATELY DILATED RV AND RA MODERATE DEGREE PULMONARY HYPERTENSION RVSP IS 49 MM OF HG AND IS HIGH AORTIC LEAFLETS ARE CALCIFIED PEAK AORTIC VALVE GRADIENT IS 42 MM OF HG AND MEAN GRADIENT IS 19 MM OF HG AORTIC VALVE AREA IS 1.47 CM SQUARE IT IS MODERATE DEGREE AORTIC STENOSIS MODERATELY DILATED RV RV STRAIN PATTERN NO EFFUSION
[2025-05-09 05:00] VITALS: BP 131/75; PULSE 88; RESP 18; TEMP 97.8; O2SAT 99
[2025-05-09 07:57] LABS: Hemoglobin 8.9 g/dL (12.2-16.2)
[2025-05-09 08:00] LABS: Hematocrit 25.9 % (36.0-46.0); Mean Corpuscular Hemoglobin 28.8 pg (28.0-32.0); Mean Corpuscular Volume 84.0 fL (80.0-100.0); Nucleated Red Blood Cells % 0.0 %
[2025-05-09 09:30] VITALS: BP 109/89; PULSE 115; RESP 20; TEMP 97.7; O2SAT 98
[2025-05-09] MEDS: METOPROLOL TARTRATE 25 MG TAB PO SCH (10:52)
--- NOTE | 2025-05-09 10:53 | DVHPN2 ---
Consult Progress Note Objective vital signs Vital Sign Date Time Temp Pulse Resp B/P (MAP) Pulse Ox O2 Delivery O2 Flow Rate FiO2 05/09/25 09:30 97.7 115 20 109/89 (96) 98 97.7 05/08/25 20:00 Nasal Cannula* 2 28 Total Intake and Output 05/08/25 05/08/25 05/09/25 15:00 23:00 07:00 Intake Total 283.28 ml 599.98 ml 300 ml Output Total 550 ml 400 ml Balance 283.28 ml 49.98 ml -100 ml medications Current Medications Medications Dose Ordered Sig/David Route Start Time Stop Time Status Last Admin Dose Admin Acetaminophen/ Hydrocodone Bitart 1 tab Q4HP PRN PO 05/05/25 15:30 Ondansetron HCl 4 mg Q4HP PRN IV 05/05/25 15:30 Docusate Sodium 100 mg BIDPRN PRN PO 05/05/25 15:30 05/08/25 17:20 100 MG Acetaminophen 650 mg Q6HP PRN PO 05/05/25 15:30 05/06/25 20:44 650 MG Vancomycin HCl 0 ml @ 0 mls/hr UD IV 05/05/25 15:45 Patient Own Medication 1 tab DAILY PO 05/06/25 10:00 Patient Own Medication 1 tab DAILY PO 05/06/25 10:00 UNV Patient Own Medication 1 tab DAILY PO 05/06/25 10:00 UNV Patient Own Medication 1 tab HS PO 05/05/25 22:00 Fluoxetine HCl 60 mg DAILY PO 05/06/25 10:00 05/08/25 10:22 60 MG Levothyroxine Sodium 75 mcg QAM@0600 PO 05/06/25 06:00 05/09/25 05:48 75 MCG Levofloxacin 50 ml @ 50 mls/hr DAILY IV 05/06/25 10:00 05/08/25 10:22 50 MLS/HR Enoxaparin Sodium 100 mg Q12HR SC 05/07/25 10:00 05/08/25 22:00 100 MG Amiodarone HCL/ Dextrose 200 ml @ 33.33 mls/ hr RATE=33.33 ML/HR IV 05/08/25 22:00 05/09/25 04:14 33.33 MLS/HR Metoprolol Tartrate 25 mg BID PO 05/09/25 10:00 Vancomycin HCl 100 ml @ 100 mls/hr Q12H IV 05/09/25 12:00 laboratory and microbiology Laboratory Tests 05/09/25 06:17 05/08/25 07:15 Test 05/08/25 07:15 Range/Units Serum Glucose 131 H 74-106 mg/dL Problem List/Assessment/Plan Problem List/Assessment/Plan Problem List/Assessment/Plan Atrial fibrillation with rapid ventricular response status post direct current cardioversion History of atrial fibrillation status post ablation (on Eliquis) Rule out structural heart disease Sepsis Pneumonia History of hypertension Acute kidney injury Hyperkalemia, resolved Acute on chronic anemia Thyroid disease status post partial thyroidectomy Moderate Aortic Stenosis Constipation, suspected SBO Plan/Recommendation (Dr. Estrada): Follow up echo reviewed, LVEF 70%, moderate LV diastolic dysfunction, moderate pulmonary hypertension with RVSP 49 mm of mercury. Moderate aortic stenosis, aortic valve area 1.47 cm2. [id number] VASc score: 3 points. HAS-BLED score: 2 points. We will continue with the IV amiodarone per protocol, plan to switch to amiodarone 200 mg p.o. twice daily x1 month followed by 200 mg daily. Continue beta-dejah for rate control as tolerated by blood pressure. Therapeutic Lovenox while inpatient, transition back to low-dose DOAC prior to discharge. Continue with antibiotics per primary care team. Pending blood cultures. Continue with rate control, continue outpatient monitoring of aortic stenosis. Continue with close cardiac surveillance. Thank you for allowing us to care for this patient. Please call with any questions or concerns. Plan discussed with: Patient, Spouse Date of Service: May 09, 2025 Billing Provider: HEATHER PAT Common Visit Codes: [id number] INP/OBS CARE(HIGH), [id number] CARE 30-74 MIN HEATHER PAT May 09, 2025 10:53
[2025-05-09 12:30] VITALS: BP 136/87; PULSE 117; RESP 14; TEMP 98.1; O2SAT 95
--- NOTE | 2025-05-09 12:37 | DVHPN2 ---
Reviewed: Care Plan, H&P, Labs, Medications, Previous Orders, Radiology Changes from previous H/P or p: No Changes Eyes: No Pain, No Vision change, No Conjunctivae inflammation, No Eyelid inflammation, No Other, No Redness ENT: No Ear pain, No Ear discharge, No Nose pain, No Nose discharge, No Nose congestion, No Mouth pain, No Mouth swelling, No Throat pain, No Throat swelling, No Other Cardiovascular: No Chest Pain, No Palpitations, No Orthopnea, No Paroxysmal Noc. Dyspnea, No Edema, No Lt Headedness, No Other Respiratory: No Cough, No Dry, No Shortness of breath, No SOB with excertion, No Wheezing, No Hemoptysis, No Pleuritic Pain, No Sputum, No Other Gastrointestinal: No Nausea, No Vomiting, No Abdominal Pain, No Diarrhea, No Constipation, No Melena, No Hematochezia, No Other Genitourinary: No Dysuria, No Frequency, No Incontinence, No Hematuria, No Retention, No Other Musculoskeletal: No other, No neck pain, No shoulder pain, No arm pain, No back pain, No hand pain, No leg pain, No foot pain Skin: No Rash, No Lesions, No Jaundice, No Bruising, No Other Objective Vitals Vital Signs Date Time Temp Pulse Resp B/P (MAP) Pulse Ox O2 Delivery O2 Flow Rate FiO2 05/09/25 10:52 115 109/89 05/09/25 09:30 97.7 20 98 97.7 05/08/25 20:00 Nasal Cannula* 2 28 Intake/Output Intake and Output 05/09/25 07:00 Intake Total 1183.26 ml Output Total 950 ml Balance 233.26 ml Intake Oral 850 ml IV Total 333.26 ml Output Urine Total 950 ml # Voids 1 Medications Current Medications Medications Dose Ordered Sig/David Route Start Time Stop Time Status Last Admin Dose Admin Acetaminophen/ Hydrocodone Bitart 1 tab Q4HP PRN PO 05/05/25 15:30 Ondansetron HCl 4 mg Q4HP PRN IV 05/05/25 15:30 Docusate Sodium 100 mg BIDPRN PRN PO 05/05/25 15:30 05/08/25 17:20 100 MG Acetaminophen 650 mg Q6HP PRN PO 05/05/25 15:30 05/06/25 20:44 650 MG Vancomycin HCl 0 ml @ 0 mls/hr UD IV 05/05/25 15:45 Patient Own Medication 1 tab DAILY PO 05/06/25 10:00 Patient Own Medication 1 tab DAILY PO 05/06/25 10:00 UNV Patient Own Medication 1 tab DAILY PO 05/06/25 10:00 UNV Patient Own Medication 1 tab HS PO 05/05/25 22:00 Fluoxetine HCl 60 mg DAILY PO 05/06/25 10:00 05/09/25 10:51 60 MG Levothyroxine Sodium 75 mcg QAM@0600 PO 05/06/25 06:00 05/09/25 05:48 75 MCG Levofloxacin 50 ml @ 50 mls/hr DAILY IV 05/06/25 10:00 05/09/25 10:54 50 MLS/HR Enoxaparin Sodium 100 mg Q12HR SC 05/07/25 10:00 05/09/25 10:53 100 MG Amiodarone HCL/ Dextrose 200 ml @ 33.33 mls/ hr RATE=33.33 ML/HR IV 05/08/25 22:00 05/09/25 11:53 33.33 MLS/HR Metoprolol Tartrate 25 mg BID PO 05/09/25 10:00 05/09/25 10:52 25 MG Vancomycin HCl 100 ml @ 100 mls/hr Q12H IV 05/09/25 12:00 Laboratory Results Laboratory Tests 05/08/25 07:15 05/09/25 06:17 Urinalysis Test 05/06/25 09:30 Urine Color Light-orange (Yellow) Urine Clarity Ex.turbid (Clear) Urine pH 5.0 (5.0-9.0) Urine Specific [place] 1.021 (1.001-1.035) Urine Protein 1+ (Negative) H Urine Ketones Negative (Negative) Urine Blood 1+ /uL (Negative) H Urine Nitrite Negative (Negative) Urine Bilirubin Negative (Negative) Urine Urobilinogen 2 mg/dL (Negative) H Urine Leukocyte Esterase Negative /uL (Negative) Urine RBC 7 /hpf (0 - 4) Urine Microscopic WBC 7 /HPF (0-5) H Urine Squamous Epithelial Cells Few /hpf (<5) Urine Amorphous Crystals Mod /hpf (None Seen) Urine Bacteria None seen /hpf (None Seen) Urine Hyaline Casts Mod /lpf (0 - 2) Urine Mucus Few (None Seen) Urine Glucose Trace mg/dL (Normal) Microbiology Microbiology Date/Time Source Procedure Growth Status 05/05/25 11:20 Voided Urine Urine Culture - Final Complete 05/05/25 10:05 Blood Blood Culture - Preliminary NO GROWTH AFTER 72 HOURS OF INCUBATION. Resulted Labs and/or images reviewed: Labs reviewed by me, Image(s) reviewed by me Assessment/Plan Assessment/Plan Covering for Dr. Coates 1. AFib with a RVR with a hemodynamically instability status post cardioversion, currently paroxysmal AFib rate controlled on IV amiodarone drip. 2. Hypotension suspect septic shock/cardiogenic shock currently on Levophed 3. Sepsis suspected secondary to right-sided pneumonia/UTI 4. Right-sided pneumonia 5. Leukocytosis 6. Acute kidney injury suspected secondary to vasomotor nephropathy currently improving 7. Hypothyroidism 8. Anxiety disorder 9. Recent history of left knee replacement 04-27-25 [facility] 10. History of blood loss anemia status post 3 units RBC transfusion after knee surgery -continue IV antibiotics, continue IV amiodarone, blood culture negative , urine cultures negative Time spent 65 minutes Advanced care planning time 20 minutes Patient is full code PCP Dr Carlos Tracy at bedside Plan discussed with: Patient Date of Service: May 09, 2025 Billing Provider: ADIA MADDOX MD Common Visit Codes: [id number] CARE 30-74 MIN ADIA MADDOX MD May 09, 2025 12:37
[2025-05-09] MEDS: VANCOMYCIN 750MG KIT 100 ML IV SCH (15:34)
[2025-05-09 17:30] VITALS: BP 144/61; PULSE 64; RESP 14; TEMP 98.6; O2SAT 98
[2025-05-09 21:00] VITALS: BP 115/65; PULSE 103; RESP 16; TEMP 97.9; O2SAT 99
[2025-05-10] VITALS (9 sets, daily range): BP systolic 108–134; BP diastolic 52–73; PULSE 66–121; RESP 14–18; TEMP 97.6–98.9; O2SAT 95–100
[2025-05-10 06:07] LABS: Nucleated Red Blood Cells % 0.0 %
[2025-05-10 06:10] LABS: Hematocrit 24.6 % (36.0-46.0); Hemoglobin 8.3 g/dL (12.2-16.2); Mean Corpuscular Hemoglobin 28.1 pg (28.0-32.0); Mean Corpuscular Volume 83.9 fL (80.0-100.0)
[2025-05-10 06:41] LABS: Alkaline Phosphatase 91 U/L (46-116); Anion Gap 10 (5-15); BUN/Creatinine Ratio 21.7 (10.0-20.0); Blood Urea Nitrogen 13 mg/dL (9-23); Carbon Dioxide 27 mmol/L (20-31); Chloride 100 mmol/L (98-107); Sodium 137 mmol/L (136-145); Total Protein 5.8 g/dL (5.7-8.2)
[2025-05-10 06:42] LABS: Bilirubin, Total 0.3 mg/dL (0.2-1.0)
[2025-05-10 06:49] LABS: Alanine Aminotransferase < 9 U/L (7-40); Albumin 3.0 g/dL (3.2-4.8); Calcium 8.1 mg/dL (8.7-10.4); Glucose 116 mg/dL (74-106); Potassium 3.2 mmol/L (3.5-5.1)
--- NOTE | 2025-05-10 09:12 | DVHPN2 ---
Consult Progress Note Subjective Patient reports: Feels better Review of Systems: CVS:Normal (Denies cp, palpitations, sob), :Abnormal (constipation bloating relieving) Objective vital signs Vital Sign Date Time Temp Pulse Resp B/P (MAP) Pulse Ox O2 Delivery O2 Flow Rate FiO2 05/10/25 05:00 97.7 100 17 122/71 (88) 99 97.7 05/09/25 20:00 Nasal Cannula* 2 28 Total Intake and Output 05/09/25 05/09/25 05/10/25 15:00 23:00 07:00 Intake Total 100 ml 600 ml Output Total 1225 ml 675 ml Balance -1125 ml -75 ml medications Current Medications Medications Dose Ordered Sig/David Route Start Time Stop Time Status Last Admin Dose Admin Acetaminophen/ Hydrocodone Bitart 1 tab Q4HP PRN PO 05/05/25 15:30 Ondansetron HCl 4 mg Q4HP PRN IV 05/05/25 15:30 Docusate Sodium 100 mg BIDPRN PRN PO 05/05/25 15:30 05/08/25 17:20 100 MG Acetaminophen 650 mg Q6HP PRN PO 05/05/25 15:30 05/06/25 20:44 650 MG Vancomycin HCl 0 ml @ 0 mls/hr UD IV 05/05/25 15:45 Patient Own Medication 1 tab DAILY PO 05/06/25 10:00 Patient Own Medication 1 tab DAILY PO 05/06/25 10:00 UNV Patient Own Medication 1 tab DAILY PO 05/06/25 10:00 UNV Patient Own Medication 1 tab HS PO 05/05/25 22:00 Fluoxetine HCl 60 mg DAILY PO 05/06/25 10:00 05/09/25 10:51 60 MG Levothyroxine Sodium 75 mcg QAM@0600 PO 05/06/25 06:00 05/10/25 06:43 75 MCG Levofloxacin 50 ml @ 50 mls/hr DAILY IV 05/06/25 10:00 05/09/25 10:54 50 MLS/HR Enoxaparin Sodium 100 mg Q12HR SC 05/07/25 10:00 05/09/25 21:13 100 MG Amiodarone HCL/ Dextrose 200 ml @ 33.33 mls/ hr RATE=33.33 ML/HR IV 05/08/25 22:00 05/09/25 23:19 33.33 MLS/HR Metoprolol Tartrate 25 mg BID PO 05/09/25 10:00 05/09/25 21:12 25 MG Vancomycin HCl 100 ml @ 100 mls/hr Q12H IV 05/09/25 12:00 05/10/25 01:10 100 MLS/HR Examination: CVS:Abnormal (Atrial fibrillation at 106 bpm) laboratory and microbiology Laboratory Tests 05/10/25 05:14 Test 05/10/25 05:14 Range/Units Serum Glucose 116 H 74-106 mg/dL Problem List/Assessment/Plan Problem List/Assessment/Plan Problem List/Assessment/Plan Atrial fibrillation with rapid ventricular response status post direct current cardioversion History of atrial fibrillation status post ablation (on Eliquis) Rule out structural heart disease Sepsis Pneumonia History of hypertension Acute kidney injury Hyperkalemia, resolved Acute on chronic anemia Thyroid disease status post partial thyroidectomy Moderate Aortic Stenosis Constipation, suspected SBO Plan/Recommendation (Dr. Estrada): Follow up echo reviewed, LVEF 70%, moderate LV diastolic dysfunction, moderate pulmonary hypertension with RVSP 49 mm of mercury. Moderate aortic stenosis, aortic valve area 1.47 cm2. [id number] VASc score: 3 points. HAS-BLED score: 2 points. We will continue with the IV amiodarone per protocol, plan to switch to amiodarone 200 mg p.o. twice daily x1 month followed by 200 mg daily. Continue beta-dejah for rate control as tolerated by blood pressure. IV metoprolol 5 mg x 1. Therapeutic Lovenox while inpatient, transition back to low-dose DOAC prior to discharge. Continue with antibiotics per primary care team. Negative blood cultures. Constipation resolving. Continue with rate control, continue outpatient monitoring of aortic stenosis. Continue with close cardiac surveillance. 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 Thank you for allowing us to care for this patient. Please call with any questions or concerns. Will sign off Plan discussed with: Patient, Spouse Dietary Evaluation Review Comments: 1) Continue cardiac diet 2) Encourage optimal PO intake 3) Refer to outpatient RD for weight management 4) Follow-up with cardiology 5) Continue to monitor I&O, labs, and skin integrity Expected Outcomes/Goals: 1) appetite and labs to improve 2) gradual wt loss 3) f/u in 3-5 days Date of Service: May 10, 2025 Billing Provider: HEATHER PAT Common Visit Codes: [id number] INP/OBS CARE(HIGH) HEATHER PAT May 10, 2025 09:12
[2025-05-10] MEDS: METOPROLOL TARTRATE 1MG/1ML-5ML VIAL IV ONE (09:15)
--- NOTE | 2025-05-10 10:08 | DVHPN2 ---
Reviewed: Care Plan, H&P, Labs, Medications, Previous Orders, Radiology Changes from previous H/P or p: No Changes Eyes: No Pain, No Vision change, No Conjunctivae inflammation, No Eyelid inflammation, No Other, No Redness ENT: No Ear pain, No Ear discharge, No Nose pain, No Nose discharge, No Nose congestion, No Mouth pain, No Mouth swelling, No Throat pain, No Throat swelling, No Other Cardiovascular: No Chest Pain, No Palpitations, No Orthopnea, No Paroxysmal Noc. Dyspnea, No Edema, No Lt Headedness, No Other Respiratory: No Cough, No Dry, No Shortness of breath, No SOB with excertion, No Wheezing, No Hemoptysis, No Pleuritic Pain, No Sputum, No Other Gastrointestinal: No Nausea, No Vomiting, No Abdominal Pain, No Diarrhea, No Constipation, No Melena, No Hematochezia, No Other Genitourinary: No Dysuria, No Frequency, No Incontinence, No Hematuria, No Retention, No Other Musculoskeletal: No other, No neck pain, No shoulder pain, No arm pain, No back pain, No hand pain, No leg pain, No foot pain Skin: No Rash, No Lesions, No Jaundice, No Bruising, No Other Objective Vitals Vital Signs Date Time Temp Pulse Resp B/P (MAP) Pulse Ox O2 Delivery O2 Flow Rate FiO2 05/10/25 09:11 108 134/73 05/10/25 05:00 97.7 17 99 97.7 05/09/25 20:00 Nasal Cannula* 2 28 Intake/Output Intake and Output 05/10/25 07:00 Intake Total 700 ml Output Total 1900 ml Balance -1200 ml Intake Oral 500 ml IV Total 200 ml Output Urine Total 1900 ml # Bowel Movements 1 Medications Current Medications Medications Dose Ordered Sig/David Route Start Time Stop Time Status Last Admin Dose Admin Acetaminophen/ Hydrocodone Bitart 1 tab Q4HP PRN PO 05/05/25 15:30 Ondansetron HCl 4 mg Q4HP PRN IV 05/05/25 15:30 Docusate Sodium 100 mg BIDPRN PRN PO 05/05/25 15:30 05/08/25 17:20 100 MG Acetaminophen 650 mg Q6HP PRN PO 05/05/25 15:30 05/06/25 20:44 650 MG Vancomycin HCl 0 ml @ 0 mls/hr UD IV 05/05/25 15:45 Patient Own Medication 1 tab DAILY PO 05/06/25 10:00 Patient Own Medication 1 tab DAILY PO 05/06/25 10:00 UNV Patient Own Medication 1 tab DAILY PO 05/06/25 10:00 UNV Patient Own Medication 1 tab HS PO 05/05/25 22:00 Fluoxetine HCl 60 mg DAILY PO 05/06/25 10:00 05/10/25 09:11 60 MG Levothyroxine Sodium 75 mcg QAM@0600 PO 05/06/25 06:00 05/10/25 06:43 75 MCG Levofloxacin 50 ml @ 50 mls/hr DAILY IV 05/06/25 10:00 05/10/25 09:11 50 MLS/HR Enoxaparin Sodium 100 mg Q12HR SC 05/07/25 10:00 05/10/25 09:10 100 MG Metoprolol Tartrate 25 mg BID PO 05/09/25 10:00 05/10/25 09:11 25 MG Vancomycin HCl 100 ml @ 100 mls/hr Q12H IV 05/09/25 12:00 05/10/25 01:10 100 MLS/HR Amiodarone HCl 200 mg Q12HR PO 05/10/25 10:00 UNV Laboratory Results Laboratory Tests 05/10/25 05:14 Chemistry Test 05/10/25 05:14 Albumin 3.0 g/dL (3.2-4.8) L Calcium Level 8.1 mg/dL (8.7-10.4) L Total Protein 5.8 g/dL (5.7-8.2) LFT Test 05/10/25 05:14 Alanine Aminotransferase (ALT) < 9 U/L (7-40) Alkaline Phosphatase 91 U/L (46-116) Aspartate Amino Transferase (AST) 18 U/L (13-40) Total Bilirubin 0.3 mg/dL (0.2-1.0) Urinalysis Test 05/06/25 09:30 Urine Color Light-orange (Yellow) Urine Clarity Ex.turbid (Clear) Urine pH 5.0 (5.0-9.0) Urine Specific [place] 1.021 (1.001-1.035) Urine Protein 1+ (Negative) H Urine Ketones Negative (Negative) Urine Blood 1+ /uL (Negative) H Urine Nitrite Negative (Negative) Urine Bilirubin Negative (Negative) Urine Urobilinogen 2 mg/dL (Negative) H Urine Leukocyte Esterase Negative /uL (Negative) Urine RBC 7 /hpf (0 - 4) Urine Microscopic WBC 7 /HPF (0-5) H Urine Squamous Epithelial Cells Few /hpf (<5) Urine Amorphous Crystals Mod /hpf (None Seen) Urine Bacteria None seen /hpf (None Seen) Urine Hyaline Casts Mod /lpf (0 - 2) Urine Mucus Few (None Seen) Urine Glucose Trace mg/dL (Normal) Microbiology Microbiology Date/Time Source Procedure Growth Status 05/05/25 11:20 Voided Urine Urine Culture - Final Complete 05/05/25 10:05 Blood Blood Culture - Preliminary NO GROWTH AFTER 72 HOURS OF INCUBATION. Resulted Labs and/or images reviewed: Labs reviewed by me, Image(s) reviewed by me Assessment/Plan Assessment/Plan Covering for Dr. Coates 1. AFib with a RVR with a hemodynamically instability status post cardioversion, currently paroxysmal AFib rate controlled on IV amiodarone drip. 2. Hypotension suspect septic shock/cardiogenic shock currently on Levophed 3. Sepsis suspected secondary to right-sided pneumonia/UTI 4. Right-sided pneumonia 5. Leukocytosis 6. Acute kidney injury suspected secondary to vasomotor nephropathy currently improving 7. Hypothyroidism 8. Anxiety disorder 9. Recent history of left knee replacement 04-[facility]-[address] [facility] 10. History of blood loss anemia status post 3 units RBC transfusion after knee surgery -continue IV antibiotics, continue IV amiodarone, blood culture negative , urine cultures negative Time spent 65 minutes Advanced care planning time 20 minutes Patient is full code PCP Dr Carlos Tracy at bedside Plan discussed with: Patient Date of Service: May 10, 2025 Billing Provider: ADIA MADDOX MD Common Visit Codes: [id number] INP/OBS CARE(HIGH) ADIA MADDOX MD May 10, 2025 10:08
[2025-05-10] MEDS: AMIODARONE HCL 200 MG TAB PO SCH (11:48)
[2025-05-10] MEDS: CALCIUM CARB 500 MG CHEW TAB PO PRN (22:33)
[2025-05-10] MEDS: ONDANSETRON HCL 4 MG/2 ML VIAL IV PRN (22:57)
[2025-05-11 01:00] VITALS: BP 107/68; PULSE 106; RESP 18; TEMP 98.1; O2SAT 98
[2025-05-11 05:00] VITALS: BP 126/67; PULSE 85; RESP 17; TEMP 97.8; O2SAT 94
[2025-05-11 08:00] VITALS: PULSE 124; RESP 18; O2SAT 97
[2025-05-11 08:02] LABS: Mean Corpuscular Volume 83.8 fL (80.0-100.0)
[2025-05-11 08:04] LABS: Hematocrit 26.9 % (36.0-46.0); Hemoglobin 9.1 g/dL (12.2-16.2); Mean Corpuscular Hemoglobin 28.3 pg (28.0-32.0); Nucleated Red Blood Cells % 0.2 %
[2025-05-11 09:00] VITALS: BP 115/81; PULSE 95; RESP 18; TEMP 98; O2SAT 92
[2025-05-11 10:01] LABS: Potassium 3.9 mmol/L (3.5-5.1)
[2025-05-11 10:08] LABS: Magnesium 1.8 mg/dL (1.6-2.6)
--- NOTE | 2025-05-11 10:31 | DVHPN2 ---
Reviewed: Care Plan, H&P, Labs, Medications, Previous Orders, Radiology Changes from previous H/P or p: No Changes Eyes: No Pain, No Vision change, No Conjunctivae inflammation, No Eyelid inflammation, No Other, No Redness ENT: No Ear pain, No Ear discharge, No Nose pain, No Nose discharge, No Nose congestion, No Mouth pain, No Mouth swelling, No Throat pain, No Throat swelling, No Other Cardiovascular: No Chest Pain, No Palpitations, No Orthopnea, No Paroxysmal Noc. Dyspnea, No Edema, No Lt Headedness, No Other Respiratory: No Cough, No Dry, No Shortness of breath, No SOB with excertion, No Wheezing, No Hemoptysis, No Pleuritic Pain, No Sputum, No Other Gastrointestinal: No Nausea, No Vomiting, No Abdominal Pain, No Diarrhea, No Constipation, No Melena, No Hematochezia, No Other Genitourinary: No Dysuria, No Frequency, No Incontinence, No Hematuria, No Retention, No Other Musculoskeletal: No other, No neck pain, No shoulder pain, No arm pain, No back pain, No hand pain, No leg pain, No foot pain Skin: No Rash, No Lesions, No Jaundice, No Bruising, No Other Objective Vitals Vital Signs Date Time Temp Pulse Resp B/P (MAP) Pulse Ox O2 Delivery O2 Flow Rate FiO2 05/11/25 10:01 95 115/81 05/11/25 05:00 97.8 17 94 97.8 05/10/25 20:00 Nasal Cannula* 2 28 Intake/Output Intake and Output 05/11/25 07:00 Intake Total 790 ml Output Total 650 ml Balance 140 ml Intake Oral 640 ml IV Total 150 ml Output Urine Total 650 ml # Bowel Movements 1 Medications Current Medications Medications Dose Ordered Sig/David Route Start Time Stop Time Status Last Admin Dose Admin Acetaminophen/ Hydrocodone Bitart 1 tab Q4HP PRN PO 05/05/25 15:30 Ondansetron HCl 4 mg Q4HP PRN IV 05/05/25 15:30 05/10/25 22:57 4 MG Docusate Sodium 100 mg BIDPRN PRN PO 05/05/25 15:30 05/08/25 17:20 100 MG Acetaminophen 650 mg Q6HP PRN PO 05/05/25 15:30 05/06/25 20:44 650 MG Vancomycin HCl 0 ml @ 0 mls/hr UD IV 05/05/25 15:45 Patient Own Medication 1 tab DAILY PO 05/06/25 10:00 05/11/25 10:09 1 TAB Patient Own Medication 1 tab DAILY PO 05/06/25 10:00 UNV Patient Own Medication 1 tab DAILY PO 05/06/25 10:00 UNV Patient Own Medication 1 tab HS PO 05/05/25 22:00 Fluoxetine HCl 60 mg DAILY PO 05/06/25 10:00 05/11/25 10:01 60 MG Levothyroxine Sodium 75 mcg QAM@0600 PO 05/06/25 06:00 05/11/25 06:49 75 MCG Levofloxacin 50 ml @ 50 mls/hr DAILY IV 05/06/25 10:00 05/11/25 10:00 50 MLS/HR Enoxaparin Sodium 100 mg Q12HR SC 05/07/25 10:00 05/11/25 10:01 100 MG Metoprolol Tartrate 25 mg BID PO 05/09/25 10:00 05/11/25 10:01 25 MG Vancomycin HCl 100 ml @ 100 mls/hr Q12H IV 05/09/25 12:00 05/11/25 00:08 100 MLS/HR Amiodarone HCl 200 mg Q12HR PO 05/10/25 10:00 05/11/25 10:00 200 MG Calcium Carbonate 500 mg QIDPRN PRN PO 05/10/25 22:15 05/10/25 22:33 500 MG Laboratory Results Laboratory Tests 05/10/25 05:14 05/11/25 05:43 05/11/25 08:44 Chemistry Test 05/11/25 08:44 Magnesium Level 1.8 mg/dL (1.6-2.6) Urinalysis Test 05/06/25 09:30 Urine Color Light-orange (Yellow) Urine Clarity Ex.turbid (Clear) Urine pH 5.0 (5.0-9.0) Urine Specific [place] 1.021 (1.001-1.035) Urine Protein 1+ (Negative) H Urine Ketones Negative (Negative) Urine Blood 1+ /uL (Negative) H Urine Nitrite Negative (Negative) Urine Bilirubin Negative (Negative) Urine Urobilinogen 2 mg/dL (Negative) H Urine Leukocyte Esterase Negative /uL (Negative) Urine RBC 7 /hpf (0 - 4) Urine Microscopic WBC 7 /HPF (0-5) H Urine Squamous Epithelial Cells Few /hpf (<5) Urine Amorphous Crystals Mod /hpf (None Seen) Urine Bacteria None seen /hpf (None Seen) Urine Hyaline Casts Mod /lpf (0 - 2) Urine Mucus Few (None Seen) Urine Glucose Trace mg/dL (Normal) Microbiology Microbiology Date/Time Source Procedure Growth Status 05/05/25 11:20 Voided Urine Urine Culture - Final Complete 05/05/25 10:05 Blood Blood Culture - Final NO GROWTH AFTER 5 DAYS OF INCUBATION. Complete Labs and/or images reviewed: Labs reviewed by me, Image(s) reviewed by me Assessment/Plan Assessment/Plan Covering for Dr. Coates 1. AFib with a RVR with hemodynamically instability status post cardioversion, currently paroxysmal AFib rate controlled on IV amiodarone tablets on Eliquis 2. Hypotension suspect septic shock/cardiogenic shock currently on Levophed 3. Sepsis suspected secondary to right-sided pneumonia/UTI 4. Right-sided pneumonia treated with the antibiotics 5. Leukocytosis 6. Acute kidney injury suspected secondary to vasomotor nephropathy currently improving 7. Hypothyroidism 8. Anxiety disorder 9. Recent history of left knee replacement 04-27-25 [facility] 10. History of blood loss anemia status post 3 units RBC transfusion after knee surgery Patient feels better and wants to go home at bedside Plan discussed with: Patient Date of Service: May 11, 2025 Billing Provider: ADIA MADDOX MD Common Visit Codes: [id number] INP/OBS CARE(HIGH) ADIA MADDOX MD May 11, 2025 10:31
[2025-05-11] MEDS ORDERED: AMIO200T33 PO (10:36)
[2025-05-11] MEDS ORDERED: APIX5TAB PO (10:36)
[2025-05-11] MEDS ORDERED: METO25TA5 PO (10:36)
[2025-05-11] MEDS ORDERED: LEVO500T91 PO (10:36)
--- NOTE | 2025-05-11 10:41 | DVHDS2 ---
Discharge Summary Date of Admission May 05, 2025 at 15:22 Date of Discharge: May 11, 2025 Admitting Diagnosis Shortness of breath Wounds: none Labs/Diagnostic Data: Laboratory Results Test 05/11/25 08:44 05/11/25 05:43 05/10/25 23:02 05/10/25 05:14 Potassium Level 3.9 mmol/L (3.5-5.1) Magnesium Level 1.8 mg/dL (1.6-2.6) White Blood Count 15.4 10^3/uL (4.4-10.8) Red Blood Count 3.21 10^6/uL (4.0-5.20) Hemoglobin 9.1 g/dL (12.2-16.2) Hematocrit 26.9 % (36.0-46.0) Mean Corpuscular Volume 83.8 fL (80.0-100.0) Mean Corpuscular Hemoglobin 28.3 pg (28.0-32.0) Mean Corpuscular Hemoglobin Concent 33.7 g/dL (32.0-36.0) Red Cell Distribution Width 18.4 % (11.8-14.3) Platelet Count 464 10^3/uL (140-450) Mean Platelet Volume 7.1 fL (6.9-10.8) Neutrophils (%) (Auto) 83.7 % (37.0-80.0) Lymphocytes (%) (Auto) 6.3 % (10.0-50.0) Monocytes (%) (Auto) 9.8 % (0.0-12.0) Eosinophils (%) (Auto) 0.2 % (0.0-7.0) Basophils (%) (Auto) 0.0 % (0.0-2.0) Neutrophils # (Auto) 12.9 10 ^3/uL (1.6-8.6) Lymphocytes # (Auto) 1.0 10 ^3/uL (0.4-5.4) Monocytes # (Auto) 1.5 10 ^3/uL (0-1.3) Eosinophils # (Auto) 0 10 ^3/uL (0-0.8) Basophils # (Auto) 0 10 ^3/uL (0-0.2) Nucleated Red Blood Cells 0.2 % Creatinine 0.63 mg/dL (0.550-1.02) Glomerular Filtration Rate Calc 97 mL/min (>90) Vancomycin Level Trough 11.2 ug/mL (5-10) Sodium Level 137 mmol/L (136-145) Chloride Level 100 mmol/L (98-107) Carbon Dioxide Level 27 mmol/L (20-31) Anion Gap 10 (5-15) Blood Urea Nitrogen 13 mg/dL (9-23) BUN/Creatinine Ratio 21.7 (10.0-20.0) Serum Glucose 116 mg/dL (74-106) Calcium Level 8.1 mg/dL (8.7-10.4) Total Bilirubin 0.3 mg/dL (0.2-1.0) Aspartate Amino Transferase (AST) 18 U/L (13-40) Alanine Aminotransferase (ALT) < 9 U/L (7-40) Alkaline Phosphatase 91 U/L (46-116) Total Protein 5.8 g/dL (5.7-8.2) Albumin 3.0 g/dL (3.2-4.8) Test 05/07/25 16:28 05/07/25 04:12 05/06/25 09:30 05/06/25 05:21 D-Dimer, Quantitative 9.33 mg/L FEU (0.0-0.49) Random Vancomycin Level 10.6 ug/mL (5-10) Urine Color Light-orange (Yellow) Urine Clarity Ex.turbid (Clear) Urine pH 5.0 (5.0-9.0) Urine Specific [place] 1.021 (1.001-1.035) Urine Protein 1+ (Negative) Urine Ketones Negative (Negative) Urine Blood 1+ /uL (Negative) Urine Nitrite Negative (Negative) Urine Bilirubin Negative (Negative) Urine Urobilinogen 2 mg/dL (Negative) Urine Leukocyte Esterase Negative /uL (Negative) Urine RBC 7 /hpf (0 - 4) Urine Microscopic WBC 7 /HPF (0-5) Urine Squamous Epithelial Cells Few /hpf (<5) Urine Amorphous Crystals Mod /hpf (None Seen) Urine Bacteria None seen /hpf (None Seen) Urine Hyaline Casts Mod /lpf (0 - 2) Urine Mucus Few (None Seen) Urine Glucose Trace mg/dL (Normal) Hemoglobin A1c 5.6 % A1C (<5.7) Triglycerides Level 135 mg/dL (< 150) Cholesterol Level 97 mg/dL (< 200) LDL Cholesterol 34 mg/dL (< 100) HDL Cholesterol 11 mg/dL (40-59) Thyroid Stimulating Hormone (TSH) 3.12 uIU/mL (0.55-4.78) Test 05/05/25 17:54 05/05/25 13:01 05/05/25 09:50 POC Glucose 131 mg/dl (70-106) Lactic Acid Level 2.0 mmol/L (0.4-2.0) Troponin I High Sensitivity 15 ng/L (</=34) Differential Total Cells Counted 100.0 (100) Neutrophils % (Manual) 84 (37.0-80.0) Band Neutrophils % (Manual) 0 Lymphocytes % (Manual) 9 (10.0-50.0) Monocytes % (Manual) 7 (0-12) Eosinophils % (Manual) 0 (0-7) Basophils % (Manual) 0 (0.0-2.0) Metamyelocytes % (manual) 0 Myelocytes % (Manual) 0 Promyelocytes % (Manual) 0 Blast Cells % (Manual) 0 Reactive Lymphocytes 0 Platelet Estimate Increased B-Type Natriuretic Peptide 257.46 pg/mL (0-100) Other Laboratory Tests 05/11/25 08:44 05/11/25 05:43 05/10/25 05:14 Brief Hx & Hospital Course: 69-year-old female with a history of hypothyroidism anxiety history of left knee replacement 04/27/2025 at [facility] history of blood loss anemia status post 3 units RBC transfusion after knee surgery came in for shortness of breaths found to be in AFib with a RVR underwent cardioversion and placed on amiodarone drip and Lovenox. Patient had acute hypotension secondary to septic shock versus cardiogenic shock found to be in sepsis secondary to right-sided pneumonia treated with the antibiotics Levaquin which has been resolving. Patient is being discharged home. Prescription for Levaquin for pneumonia Eliquis for AFib metoprolol tartrate for hypotension and amiodarone for rhythm control transmitted to the pharmacy. at the bedside patient was advised to follow up with her primary doctor. Consults/Reason for consult Cardiology Dr. Ernestina Palencia Operations or Procedures Echocardiogram Condition at Discharge: Fair Final Diagnosis/Problems List 1. AFib with a RVR with hemodynamically instability status post cardioversion, currently paroxysmal AFib rate controlled on IV amiodarone tablets on Eliquis 2. Hypotension suspect septic shock/cardiogenic shock currently on Levophed 3. Sepsis suspected secondary to right-sided pneumonia/UTI 4. Right-sided pneumonia treated with the antibiotics 5. Leukocytosis 6. Acute kidney injury suspected secondary to vasomotor nephropathy currently improving 7. Hypothyroidism 8. Anxiety disorder 9. Recent history of left knee replacement 04-27-25 [facility] 10. History of blood loss anemia status post 3 units RBC transfusion after knee surgery Discharge Disposition: Home Discharge Instruct/Medications Diet: Cardiac 2g Na,low cholest Activity: Light activity Follow Up/Referral: Follow up with the primary Dr Dr.Al Lazo in one week Resume all previous home meds Medications: Eliquis metoprolol tartrate amiodarone Levaquin Transmitted to pharmacy Scheduled Amiodarone Hcl (Amiodarone Hcl), 200 MG PO BID Apixaban Base (Eliquis), 5 MG PO BID Apixaban Base (Eliquis), 10 MG PO BID Bupropion Hcl (Bupropion Hcl Xl), 1 TAB PO DAILY, (Reported) Fluoxetine Hcl (Fluoxetine Hcl), 1 TAB PO DAILY, (Reported) Levofloxacin Hemihydrate (Levaquin 500 Mg), 1 TAB PO DAILY Levothyroxine Sodium (Levothyroxine Sodium), 1 TAB PO DAILY, (Reported) Lisinopril (Lisinopril), 1 TAB PO DAILY, (Reported) Metoprolol Tartrate (Lopressor Tablet), 1 TAB PO BID, (Reported) Metoprolol Tartrate (Metoprolol Tartrate), 1 TAB PO BID Ropinirole Hydrochloride (Ropinirole Hcl), 1 TAB PO HS, (Reported) 39 (Time taken for discharge summary 39 minutes) Discharge Statement: "Patient was advised to return to the ER or call 911 if any headaches, dizziness, shortness of breath, chest pain, abdominal pain, bleeding, fevers, or worsening of medical condition. Patient was counseled about treatment plan, medications, possible side effects, patientverbalized understanding. All questions were answered to the best of my ability. This discharge took greater then 30 minutes in planning, reviewing documentation, counseling the patient, and discussing with other team members." ASSESSMENT ASSESSMENT Hospital Course Uneventful Assessment 1. AFib with a RVR with hemodynamically instability status post cardioversion, currently paroxysmal AFib rate controlled on IV amiodarone tablets on Eliquis 2. Hypotension suspect septic shock/cardiogenic shock currently on Levophed 3. Sepsis suspected secondary to right-sided pneumonia/UTI 4. Right-sided pneumonia treated with the antibiotics 5. Leukocytosis 6. Acute kidney injury suspected secondary to vasomotor nephropathy currently improving 7. Hypothyroidism 8. Anxiety disorder 9. Recent history of left knee replacement 04-27-25 [facility] 10. History of blood loss anemia status post 3 units RBC transfusion after knee surgery Date of Service: May 11, 2025 Billing Provider: ADIA MADDOX MD Common Visit Codes: 83621-CYV/OBS DISCH DAY >30min ADIA MADDOX MD May 11, 2025 10:41
[2025-05-11 11:38] VITALS: BP 130/79; PULSE 111; RESP 18; TEMP 98.3; O2SAT 97
[2025-05-11] MEDS: VANCOMYCIN 750MG KIT 100 ML IV SCH (12:00)
--- NOTE | 2025-05-14 13:14 | ECG ---
[facility] Test Date: 2025-05-06 Test Time: 12:06:08 Pat Name: ROJELIO VELASQUEZ Department: [facility] ED Patient ID: [facility]-[id number] Room: 0219T A Gender: F Status Controller: mckay : 1955 Requested By: FAHEEM MAKI Order Number: [id number] Reading MD: Rafita Estrada Measurements Intervals [place] Rate: 126 P: -38 SD: 155 QRS: 0 QRSD: 92 T: 68 QT: 319 QTc: 462 Interpretive Statements Sinus tachycardia with irregular rate Consider anterior infarct Minimal ST depression, lateral leads Electronically Signed On 05-19-2025 18:45:10 PDT by Rafita Estrada Please click the below link to view image of tracing.
--- NOTE | 2025-05-14 13:14 | ECG ---
[facility] Test Date: 2025-05-06 Test Time: 21:48:40 Pat Name: ROJELIO VELASQUEZ Department: [facility] ED Patient ID: [facility]-[id number] Room: 0219T A Gender: F Shuttle Final Inspector: daryl : 1955 Requested By: FAHEEM MAKI Order Number: [id number] Reading MD: Rafita sEtrada Measurements Intervals [place] Rate: 140 P: 0 ME: 82 QRS: 42 QRSD: 97 T: 227 QT: 305 QTc: 466 Interpretive Statements Sinus tachycardia with irregular rate Borderline repolarization abnormality Electronically Signed On 05-19-2025 18:45:30 PDT by Rafita Estrada Please click the below link to view image of tracing.
--- NOTE | 2025-05-14 13:15 | ECG ---
[facility] Test Date: 2025-05-06 Test Time: 03:37:51 Pat Name: ROJELIO VELASQUEZ Department: [facility] ED Patient ID: [facility]-[id number] Room: 0219T A Gender: F Nail Cutter: YAMIL : 1955 Requested By: FAHEEM MAKI Order Number: [id number] Reading MD: Rafita Estrada Measurements Intervals [place] Rate: 135 P: 0 OR: 141 QRS: 28 QRSD: 87 T: 136 QT: 310 QTc: 465 Interpretive Statements Sinus tachycardia Multiform ventricular premature complexes Nonspecific repol abnormality, lateral leads ST elevation, consider inferior injury Electronically Signed On 05-19-2025 18:44:35 PDT by Rafita Estrada Please click the below link to view image of tracing.
--- NOTE | 2025-05-14 13:15 | ECG ---
[facility] Test Date: 2025-05-06 Test Time: 11:24:56 Pat Name: ROJELIO VELASQUEZ Department: [facility] ED Patient ID: [facility]-[id number] Room: 0219T A Gender: F Plate Glass Grinder: mckay : 1955 Requested By: FAHEEM MAKI Order Number: [id number] Reading MD: Rafita Estrada Measurements Intervals [place] Rate: 188 P: 149 IA: 190 QRS: -17 QRSD: 90 T: 119 QT: 255 QTc: 451 Interpretive Statements Supraventricular tachycardia Multiple premature complexes, vent & supraven LVH with secondary repolarization abnormality Anterior Q waves, possibly due to LVH Electronically Signed On 05-19-2025 18:45:00 PDT by Rafita Estrada Please click the below link to view image of tracing.
--- NOTE | 2025-05-14 13:15 | ECG ---
[facility] Test Date: 2025-05-06 Test Time: 09:45:49 Pat Name: ROJELIO VELASQUEZ Department: [facility] ED Patient ID: [facility]-[id number] Room: 0219T A Gender: F Air Intercept Controller Supervisor: NICO : 1955 Requested By: FAHEEM MAKI Order Number: [id number] Reading MD: Rafita Estrada Measurements Intervals [place] Rate: 203 P: 122 [place]: 108 QRS: -7 QRSD: 92 T: 149 QT: 251 QTc: 461 Interpretive Statements Supraventricular tachycardia LVH with secondary repolarization abnormality Baseline wander in lead(s) V4,V5 Electronically Signed On 05-19-2025 18:44:49 PDT by Rafita Estrada Please click the below link to view image of tracing.
--- NOTE | 2025-05-14 13:15 | ECG ---
[facility] Test Date: 2025-05-05 Test Time: 09:19:36 Pat Name: ROJELIO VELASQUEZ Department: Room: 0219T A Gender: F Insurance Verifier: LORRAINE : 1955 Requested By: FAHEEM MAKI Order Number: [id number] Reading MD: Rafita Estrada Measurements Intervals [place] Rate: 101 P: -12 [place]: 161 QRS: 22 QRSD: 83 T: 70 QT: 363 QTc: 471 Interpretive Statements Sinus tachycardia Electronically Signed On 05-19-2025 18:43:45 PDT by Rafita Estrada Please click the below link to view image of tracing.
== END 2025-05-11 12:18 | disposition home or self-care (01) | DRG 871 ==
LOC: EDSEX 09:25 → ER 09:25 → EDBD 09:25 → OVERFLOW 15:22 → TELE-CENTR 05-08 19:54
PROVIDERS: ADMIT Family Medicine; ATTEND Family Medicine
PROC: 02HV33Z Insertion of Infusion Device into Superior Vena Cava, Percutaneous Approach (ICD-10-PCS; principal; 2025-05-05)
PROC: B548ZZA Ultrasonography of Superior Vena Cava, Guidance (ICD-10-PCS; 2025-05-05)
PROC: 5A2204Z Restoration of Cardiac Rhythm, Single (ICD-10-PCS; 2025-05-06)
DX: A41.59 Other Gram-negative sepsis (principal); J15.69 Pneumonia due to other Gram-negative bacteria; N17.0 Acute kidney failure with tubular necrosis; R65.21 Severe sepsis with septic shock; R57.0 Cardiogenic shock; J15.9 Unspecified bacterial pneumonia; E87.1 Hypo-osmolality and hyponatremia; N39.0 Urinary tract infection, site not specified; I47.10 Supraventricular tachycardia, unspecified; I48.20 Chronic atrial fibrillation, unspecified; E86.0 Dehydration; E87.5 Hyperkalemia; F41.9 Anxiety disorder, unspecified; D64.9 Anemia, unspecified; I48.0 Paroxysmal atrial fibrillation; E87.8 Other disorders of electrolyte and fluid balance, not elsewhere classified; E78.5 Hyperlipidemia, unspecified; I10 Essential (primary) hypertension; I35.0 Nonrheumatic aortic (valve) stenosis; K59.00 Constipation, unspecified; Z88.5 Allergy status to narcotic agent; Z88.0 Allergy status to penicillin; Z88.1 Allergy status to other antibiotic agents; Z90.710 Acquired absence of both cervix and uterus; Z90.49 Acquired absence of other specified parts of digestive tract; Z96.652 Presence of left artificial knee joint
CPT/HCPCS: 36415; 36556; 71045; 71275; 74176; 80048; 80053; 80061; 80202; 81001; 82565; 82962; 83036; 83605; 83735; 83880; 84132; 84443; 84484; 85007; 85025; 85027; 85379; 87040; 87086; 92960; 93005; 93306; 93970; 96365; 97110; 97116; 97163; 99291; G0378; J0153; J1956; J2250; J2405